=== PATIENT | female | born 1940 | race African-American/Black ===

== ENCOUNTER 2016-09-21 15:32 | Emergency (ER) | payer OTHER ==
[~2016-09-21] VITALS: Ht 160 cm; Wt 90.7 kg
[~2016-09-21 15:32] MED LIST: ACETAMINOPHEN1 EAC4 PO; ACETAMINOPHN-T1 EACH PO; ALEVE220 MG PO; AMLODIPINE-BEN1 EACH PO; AMOX TR-K CLV1 EAC4 PO; ANASTROZOLE1 MG PO; ARIMIDEX1 MG PO; ASPIR-LOW81 MG PO; ASPIRIN E.C.81 M1 PO; ATIVAN0.5 MG PO; AUGMENTIN875 MG PO; AZOR 10/20 M1 TABLET PO; Arimidex PO; Ativan PO; Augmentin PO; BENADRYL25 MG PO; CALCIUM + D 601 EACH PO; CALCIUM600 MG PO; CALTRATE 6001 TABLE1 PO; CEFTIN500 MG PO; CELEBREX200 MG PO; CHILD ASPIRIN81 M1 PO; CIPRO500 MG PO; Caltrate 600/200 PO; DOXYCYCLINE HY100 MG PO; EFFEXOR XR37.5 MG PO; EFFEXOR37.5 MG PO; FLONASE16 G1 BOTH NARES; Flonase BOTH NARES; GABAPENTIN300 MG PO; HUMALOG MI100 UNIT/5; HUMALOG MI100 UNIT/5 SC; HUMALOG MI100 UNIT/5 SQ; HUMALOG MI100 UNIT/6 SC; HUMALOG100 UNIT/1 SC; HUMALOG100 UNIT/2; HUMALOG100 UNIT/2 SC; HYDROCHLOROTHIA25 MG; HYDROCHLOROTHIA25 MG PO; LANTUS (UNITS)1 UNIT SC; LANTUS 10100 UNITS/ SC; LANTUS 3 M100 UNITS/ SC; LANTUS100 UNIT/1 SQ; LEVOCETIRIZINE D5 MG PO; LISINOPRIL20 MG PO; LORAZEPAM0.5 MG PO; LOTREL 10/21 CAPSULE PO; Lantus 3 ml Solostar SC; MECLIZINE HCL25 M3 PO; MECLIZINE HCL25 MG PO; MELOXICAM15 MG PO; METFORMIN HCL1000 MG PO; METFORMIN HCL500 MG PO; MYCOSTATIN 100,60 ML PO; NITROSTAT0.4 MG SL; NOVOLOG MI100 UNIT/M SC; NOVOLOG100 UNIT/2 SQ; OMEPRAZOLE20 MG PO; ONDANSETRON HCL4 MG PO; PANTOPRAZOLE SO40 MG PO; PERMETHRIN60 GM TP; PHENERGAN12.5 M1 PO; PHENERGAN12.5 MG PR; POTASSIUM GLUCO2 MEQ PO; POTASSIUM GLUCONATE PO; PRAVASTATIN SOD40 MG PO; PREDNISONE20 MG PO; PRILOSEC20 MG PO; PRILOSEC40 MG PO; PROMETHAZINE HC25 M1 PO; PROTONIX40 MG PO; Phenergan PO; TOUJEO SOL300 UNIT/1 SC; TRAMADOL HCL50 MG PO; Tylenol Extra Streng PO; Tylenol Regular Stre PO; ULTRAM50 MG PO; VENLAFAXINE HC150 MG PO; VENLAFAXINE HCL75 M3 PO; VENLAFAXINE HCL75 MG PO; VITAMIN E400 UNIT PO; ZOFRAN ODT4 MG PO; ZOFRAN4 MG PO; ZOLOFT50 MG PO; [UNRECOGNIZED DRUG - OTHER] TP
[2016-09-21 16:24] LABS: MCH 28.3 PG (29.0-34.0); MCHC 34.1 G/DL (30.0-36.0); MCV 83.1 FL (83-99); MEAN PLAT.VOLUME 10.1 uM^3 (9.5-12.4); PLATELET COUNT 140 K/uL (156-360); RBC DIS.WIDTH-SD 45.6 % (39-53); RED BLOOD COUNT 4.45 M/uL (3.80-5.20); WHITE BLOOD COUNT 4.9 K/uL (4.1-10.2)
[2016-09-21 16:31] LABS: CHLORIDE 102 mEq/L (99-109); POTASSIUM 3.7 mEq/L (3.7-5.4); SODIUM 138 mEq/L (136-147)
[2016-09-21 16:33] LABS: GLUCOSE 230 mg/dL (70-99)
[2016-09-21 16:35] LABS: ANION GAP 10 MEQ/L (2-14)
[2016-09-21 16:37] LABS: GFR ESTIMATE (CALCULATED) > 59 mL/min/
[2016-09-21 16:38] LABS: UREA NITROGEN (BUN) 11 mg/dL (9-23)
[2016-09-21 16:44] LABS: TROP-I INTERPRETATION NEGATIVE; TROPONIN-I < 0.01 ng/mL (0.0-0.30)
[2016-09-21] MEDS ORDERED: TOUJEO SOL300 UNIT/1 SC ×2 (18:22→18:23)
[2016-09-21] MEDS ORDERED: PREDNISONE20 MG PO (19:12)
[2016-09-21 19:58] LABS: POINT-OF-CARE METER ID UU13113800
[2016-09-21 20:07] VITALS: BP 150/72
== END 2016-09-21 20:10 | disposition home or self-care (01) ==
LOC: EME 15:32 → RME 15:32
PROVIDERS: Nurse Practitioner Family
DX: R06.02 Shortness of breath (principal); R06.2 Wheezing; E11.9 Type 2 diabetes mellitus without complications; I10 Essential (primary) hypertension; Z87.442 Personal history of urinary calculi; K21.9 Gastro-esophageal reflux disease without esophagitis; Z85.3 Personal history of malignant neoplasm of breast; Z79.82 Long term (current) use of aspirin; Z79.4 Long term (current) use of insulin
CPT/HCPCS: 71020; 80048; 82948; 84484; 85027; 93005; 94640; 99281; 99285; J7512

== ENCOUNTER 2016-10-25 05:26 | Observation (INO) | payer OTHER ==
[~2016-10-25] VITALS: Ht 161.3 cm; Wt 92.9 kg
[2016-10-25 06:06] LABS: HEMATOCRIT 35.5 % (36.0-46.0); MCH 27.9 PG (29.0-34.0); MCHC 33.8 G/DL (30.0-36.0); MCV 82.6 FL (83-99); MEAN PLAT.VOLUME 10.2 uM^3 (9.5-12.4); PLATELET COUNT 170 K/uL (156-360); RBC DIS.WIDTH-CV 13.8 % (11.8-14.6); RBC DIS.WIDTH-SD 40.6 % (39-53); WHITE BLOOD COUNT 5.6 K/uL (4.1-10.2)
[2016-10-25 06:19] LABS: CHLORIDE 100 mEq/L (99-109); POTASSIUM 3.1 mEq/L (3.7-5.4); SODIUM 139 mEq/L (136-147)
[2016-10-25 06:21] LABS: GLUCOSE 179 mg/dL (70-99)
[2016-10-25 06:22] LABS: ANION GAP 11 MEQ/L (2-14)
[2016-10-25 06:23] LABS: TOTAL BILIRUBIN 0.4 mg/dL (0.0-1.0)
[2016-10-25 06:24] LABS: ALKALINE PHOSPHATASE 122 IU/L (3-129)
[2016-10-25 06:25] LABS: GFR ESTIMATE (CALCULATED) > 59 mL/min/
[2016-10-25 06:26] LABS: UREA NITROGEN (BUN) 10 mg/dL (9-23)
[2016-10-25 06:28] LABS: LIPASE 7 U/L (1.0-51.0)
[2016-10-25 06:30] LABS: TROP-I INTERPRETATION NEGATIVE; TROPONIN-I < 0.01 ng/mL (0.0-0.30)
[2016-10-25] MEDS ORDERED: POTASSIUM GLUCO2 MEQ PO (08:43)
[2016-10-25] MEDS ORDERED: NOVOLOG PE100 UNITS/ SC (08:45)
[2016-10-25] MEDS ORDERED: KENALOG,ARISTOC15 GM TP (08:45)
[2016-10-25] MEDS ORDERED: VENTOLIN HFA18 GM IH (08:45)
[2016-10-25 12:55] VITALS: BP 163/74
[2016-10-25 12:56] LABS: POINT-OF-CARE METER ID UU14162513
[2016-10-25 14:18] LABS: TROP-I INTERPRETATION NEGATIVE; TROPONIN-I < 0.01 ng/mL (0.0-0.30)
[2016-10-25 16:13] VITALS: BP 173/74
[2016-10-25 17:24] LABS: POINT-OF-CARE METER ID UU13113831
[2016-10-25 20:00] VITALS: BP 137/63
[2016-10-25 20:45] LABS: TROP-I INTERPRETATION NEGATIVE; TROPONIN-I < 0.01 ng/mL (0.0-0.30)
[2016-10-25 21:14] LABS: POINT-OF-CARE METER ID UU13113700
[2016-10-25 23:44] VITALS: BP 142/73
[2016-10-26 05:15] VITALS: BP 146/70
[2016-10-26 07:39] VITALS: BP 152/71
[2016-10-26] MEDS ORDERED: LISINOPRIL20 MG PO (09:01)
[2016-10-26] MEDS ORDERED: AMLODIPINE BESY10 MG PO (09:34)
[2016-10-26 10:20] LABS: HEMATOCRIT 35.3 % (36.0-46.0); MCH 28.1 PG (29.0-34.0); MCHC 33.4 G/DL (30.0-36.0); MEAN PLAT.VOLUME 10.7 uM^3 (9.5-12.4); PLATELET COUNT 158 K/uL (156-360); RBC DIS.WIDTH-CV 14.5 % (11.8-14.6); RBC DIS.WIDTH-SD 44.6 % (39-53); WHITE BLOOD COUNT 5.3 K/uL (4.1-10.2)
[2016-10-26 10:41] LABS: ANION GAP 10 MEQ/L (2-14); CHLORIDE 101 MEQ/L (99-109); GFR ESTIMATE (CALCULATED) > 59 mL/min/; GLUCOSE 216 mg/dL (70-99); MAGNESIUM 1.6 mg/dl (1.3-2.7); POTASSIUM 3.7 MEQ/L (3.7-5.4); SAMPLE HEMOLYSIS CHECK 0; SAMPLE ICTERIC CHECK 0; SAMPLE LIPEMIA CHECK 0; SODIUM 139 MEQ/L (136-147); UREA NITROGEN (BUN) 13 mg/dL (9-23)
== END 2016-10-26 11:19 | disposition home or self-care (01) ==
LOC: EME → EDBD 05:26 → EME 05:26 → EDOF 09:55 → 5WEST 09:55
PROVIDERS: Emergency Medicine; Hospitalist; Internal Medicine; Physician Assistant
DX: R07.9 Chest pain, unspecified (principal); M79.601 Pain in right arm; I10 Essential (primary) hypertension; E78.5 Hyperlipidemia, unspecified; E66.9 Obesity, unspecified; Z68.35 Body mass index [BMI] 35.0-35.9, adult; E11.9 Type 2 diabetes mellitus without complications; E87.6 Hypokalemia; Z79.4 Long term (current) use of insulin; R06.02 Shortness of breath; R42 Dizziness and giddiness; Z88.5 Allergy status to narcotic agent
CPT/HCPCS: 71010; 73030; 73080; 80048; 80053; 82948; 83690; 83735; 83880; 84484; 85027; 85730; 93005; 99281; 99285; G0378; J1200; J1815

== ENCOUNTER 2017-01-07 08:09 | Emergency (ER) | payer OTHER ==
[~2017-01-07] VITALS: Ht 160 cm; Wt 95.6 kg
[~2017-01-07 08:09] MED LIST changes: +AMLODIPINE BESY10 MG PO; +KENALOG,ARISTOC15 GM TP; +NOVOLOG PE100 UNITS/ SC; +VENTOLIN HFA18 GM IH
[2017-01-07 08:53] LABS: EOSINOPHIL (%) 7.2 % (0-5); EOSINOPHIL COUNT 0.4 K/uL (0-0.3); HEMATOCRIT 35.9 % (36.0-46.0); IMMATURE GRANULOCYTE (%) 0.4 % (0.0-0.7); INSTRUMENT ABS NEUTROPHIL CT 2.6 K/uL; LYMPHOCYTE COUNT 1.7 K/uL (1.0-2.8); MCH 26.3 PG (29.0-34.0); MCHC 32.9 G/DL (30.0-36.0); MCV 80.1 FL (83-99); MEAN PLAT.VOLUME 10.6 uM^3 (9.5-12.4); MONOCYTE (%) 9.1 % (3-12); MONOCYTE COUNT 0.5 K/uL (0-0.8); NEUTROPHIL (%) 49.6 % (45-76); NEUTROPHIL COUNT 2.6 K/uL (1.8-6.4); PLATELET COUNT 157 K/uL (156-360); RBC DIS.WIDTH-CV 14.5 % (11.8-14.6); RBC DIS.WIDTH-SD 42.4 % (39-53); RED BLOOD COUNT 4.48 M/uL (3.80-5.20); WHITE BLOOD COUNT 5.1 K/uL (4.1-10.2)
[2017-01-07 09:25] LABS: ANION GAP 5 MEQ/L (2-14); CHLORIDE 98 MEQ/L (99-109); POTASSIUM 3.5 MEQ/L (3.7-5.4); SAMPLE HEMOLYSIS CHECK 0; SAMPLE ICTERIC CHECK 0; SAMPLE LIPEMIA CHECK 0; SODIUM 133 MEQ/L (136-147); TOTAL BILIRUBIN 0.4 MG/DL (0.0-1.0)
[2017-01-07 09:27] LABS: TROP-I INTERPRETATION NEGATIVE; TROPONIN-I < 0.01 ng/mL (0.0-0.30)
[2017-01-07 09:31] LABS: ALKALINE PHOSPHATASE 136 IU/L (3-129); GFR ESTIMATE (CALCULATED) > 59 mL/min/; GLUCOSE 136 mg/dL (70-99); LIPASE 9 U/L (1.0-51.0); UREA NITROGEN (BUN) 12 mg/dL (9-23)
[2017-01-07 11:31] VITALS: BP 152/90
== END 2017-01-07 11:32 | disposition home or self-care (01) ==
LOC: EME 08:09
PROVIDERS: Emergency Medicine
DX: R10.13 Epigastric pain (principal); K21.0 Gastro-esophageal reflux disease with esophagitis; K44.9 Diaphragmatic hernia without obstruction or gangrene; R51 Headache; R05 Cough; I10 Essential (primary) hypertension; E11.9 Type 2 diabetes mellitus without complications; J44.9 Chronic obstructive pulmonary disease, unspecified; J45.909 Unspecified asthma, uncomplicated; Z87.442 Personal history of urinary calculi; Z85.3 Personal history of malignant neoplasm of breast; Z90.49 Acquired absence of other specified parts of digestive tract; Z90.710 Acquired absence of both cervix and uterus; Z79.4 Long term (current) use of insulin; Z79.82 Long term (current) use of aspirin
CPT/HCPCS: 71010; 80053; 83690; 84484; 85025; 99281; 99284

== ENCOUNTER 2017-02-17 19:39 | Emergency (ER) | payer OTHER ==
[~2017-02-17] VITALS: Ht 160 cm; Wt 97.1 kg
[2017-02-17 21:25] LABS: MCH 26.1 PG (29.0-34.0); MCHC 32.4 G/DL (30.0-36.0); MCV 80.6 FL (83-99); MEAN PLAT.VOLUME 10.8 uM^3 (9.5-12.4); PLATELET COUNT 150 K/uL (156-360); RBC DIS.WIDTH-CV 15.4 % (11.8-14.6); RBC DIS.WIDTH-SD 44.8 % (39-53); RED BLOOD COUNT 4.22 M/uL (3.80-5.20); WHITE BLOOD COUNT 5.7 K/uL (4.1-10.2)
[2017-02-17 21:37] LABS: CHLORIDE 105 mEq/L (99-109); POTASSIUM 4.2 mEq/L (3.7-5.4); SODIUM 137 mEq/L (136-147)
[2017-02-17 21:39] LABS: GLUCOSE 240 mg/dL (70-99)
[2017-02-17 21:40] LABS: ANION GAP 3 MEQ/L (2-14)
[2017-02-17 21:41] LABS: TOTAL BILIRUBIN 0.4 mg/dL (0.0-1.0)
[2017-02-17 21:42] LABS: ALKALINE PHOSPHATASE 139 IU/L (3-129)
[2017-02-17 21:43] LABS: GFR ESTIMATE (CALCULATED) > 59 mL/min/
[2017-02-17 21:44] LABS: UREA NITROGEN (BUN) 15 mg/dL (9-23)
[2017-02-17 21:48] LABS: TROP-I INTERPRETATION NEGATIVE; TROPONIN-I < 0.01 ng/mL (0.0-0.30)
[2017-02-17 22:22] LABS: ADD MIUA? YES; BILIRUBIN NEGATIVE; BLOOD SMALL; COLOR YELLOW ((YELLOW)); GLUCOSE (STRIP) 50; KETONES NEGATIVE; LEUKOCYTES TRACE; NITRITE NEGATIVE; PROTEIN (STRIP) 30; SPECIFIC GRAVITY 1.013 (1.000-1.030); UROBILINOGEN 0.2 MG/DL (0.2-1.0)
[2017-02-17 22:38] LABS: BACTERIA 3+ /HPF; EPITHELIAL CELLS 1+ /HPF; MUCUS TRACE /LPF; RED BLOOD CELLS 0-5 /HPF (0-5); UCUL ADDED? NO; WHITE BLOOD CELLS 0-5 /HPF (0-5)
[2017-02-17 23:05] VITALS: BP 132/66
== END 2017-02-17 23:06 | disposition home or self-care (01) ==
LOC: EME 19:39 → EXP 19:39
PROVIDERS: Physician Assistant
DX: R42 Dizziness and giddiness (principal); S09.90XA Unspecified injury of head, initial encounter; S16.1XXA Strain of muscle, fascia and tendon at neck level, initial encounter; W18.30XA Fall on same level, unspecified, initial encounter; Y93.G3 Activity, cooking and baking; Y92.000 Kitchen of unspecified non-institutional (private) residence as the place of occurrence of the external cause; E11.9 Type 2 diabetes mellitus without complications; I10 Essential (primary) hypertension; K21.9 Gastro-esophageal reflux disease without esophagitis; Z87.442 Personal history of urinary calculi; J44.9 Chronic obstructive pulmonary disease, unspecified; Z88.6 Allergy status to analgesic agent; Z79.4 Long term (current) use of insulin
CPT/HCPCS: 70450; 72125; 80053; 81003; 84484; 85027; 93005; 99281; 99284

== ENCOUNTER 2017-02-27 10:12 | Emergency (ER) | payer OTHER ==
[~2017-02-27] VITALS: Ht 160 cm; Wt 91.8 kg
[2017-02-27 12:51] LABS: EOSINOPHIL (%) 1.9 % (0-5); EOSINOPHIL COUNT 0.1 K/uL (0-0.3); IMMATURE GRANULOCYTE (%) 0.4 % (0.0-0.7); INSTRUMENT ABS NEUTROPHIL CT 4.4 K/uL; LYMPHOCYTE COUNT 1.9 K/uL (1.0-2.8); MCHC 32.6 G/DL (30.0-36.0); MCV 79.7 FL (83-99); MEAN PLAT.VOLUME 11.8 uM^3 (9.5-12.4); MONOCYTE (%) 10.7 % (3-12); MONOCYTE COUNT 0.8 K/uL (0-0.8); NEUTROPHIL (%) 60.8 % (45-76); NEUTROPHIL COUNT 4.4 K/uL (1.8-6.4); PLATELET COUNT 160 K/uL (156-360); RBC DIS.WIDTH-CV 15.8 % (11.8-14.6); RBC DIS.WIDTH-SD 45.4 % (39-53); RED BLOOD COUNT 4.77 M/uL (3.80-5.20); WHITE BLOOD COUNT 7.2 K/uL (4.1-10.2)
[2017-02-27 13:01] LABS: CHLORIDE 103 mEq/L (99-109); POTASSIUM 3.8 mEq/L (3.7-5.4); SODIUM 140 mEq/L (136-147)
[2017-02-27 13:02] LABS: GLUCOSE 151 mg/dL (70-99)
[2017-02-27 13:04] LABS: ANION GAP 11 MEQ/L (2-14)
[2017-02-27 13:06] LABS: GFR ESTIMATE (CALCULATED) > 59 mL/min/
[2017-02-27 13:07] LABS: UREA NITROGEN (BUN) 9 mg/dL (9-23)
[2017-02-27] MEDS ORDERED: MOTRIN800 MG PO (16:49)
[2017-02-27 17:27] VITALS: BP 163/69
== END 2017-02-27 17:40 | disposition home or self-care (01) ==
LOC: EME 10:12
PROVIDERS: Emergency Medicine
DX: S09.90XA Unspecified injury of head, initial encounter (principal); S60.222A Contusion of left hand, initial encounter; W01.0XXA Fall on same level from slipping, tripping and stumbling without subsequent striking against object, initial encounter; Y92.002 Bathroom of unspecified non-institutional (private) residence as the place of occurrence of the external cause; Z85.3 Personal history of malignant neoplasm of breast; E11.9 Type 2 diabetes mellitus without complications; Z79.4 Long term (current) use of insulin; Z79.82 Long term (current) use of aspirin; J44.9 Chronic obstructive pulmonary disease, unspecified; I10 Essential (primary) hypertension; Z87.442 Personal history of urinary calculi; K21.9 Gastro-esophageal reflux disease without esophagitis; Z88.8 Allergy status to other drugs, medicaments and biological substances; Z88.5 Allergy status to narcotic agent
CPT/HCPCS: 70450; 73110; 73130; 80048; 85025; 99281; 99284; G8978 GP CK; G8979 CJ; G8987 CK; G8988 CI

== ENCOUNTER 2017-04-01 12:08 | Observation (INO) | payer OTHER ==
[~2017-04-01] VITALS: Ht 160 cm; Wt 92.2 kg
[~2017-04-01 12:08] MED LIST changes: +MOTRIN800 MG PO
[2017-04-01 12:46] LABS: EOSINOPHIL (%) 3.7 % (0-5); EOSINOPHIL COUNT 0.2 K/uL (0-0.3); HEMATOCRIT 33.3 % (36.0-46.0); IMMATURE GRANULOCYTE (%) 0.7 % (0.0-0.7); INSTRUMENT ABS NEUTROPHIL CT 1.7 K/uL; LYMPHOCYTE COUNT 1.9 K/uL (1.0-2.8); MCH 26.1 PG (29.0-34.0); MCHC 32.7 G/DL (30.0-36.0); MCV 79.9 FL (83-99); MEAN PLAT.VOLUME 11.3 uM^3 (9.5-12.4); MONOCYTE COUNT 0.5 K/uL (0-0.8); NEUTROPHIL (%) 39.7 % (45-76); NEUTROPHIL COUNT 1.7 K/uL (1.8-6.4); PLATELET COUNT 142 K/uL (156-360); RBC DIS.WIDTH-CV 15.2 % (11.8-14.6); RBC DIS.WIDTH-SD 44.1 % (39-53); RED BLOOD COUNT 4.17 M/uL (3.80-5.20); WHITE BLOOD COUNT 4.4 K/uL (4.1-10.2)
[2017-04-01 13:04] LABS: CHLORIDE 103 mEq/L (99-109)
[2017-04-01 13:05] LABS: POTASSIUM 3.6 mEq/L (3.7-5.4); SODIUM 138 mEq/L (136-147)
[2017-04-01 13:06] LABS: GLUCOSE 262 mg/dL (70-99)
[2017-04-01 13:08] LABS: ANION GAP 9 MEQ/L (2-14)
[2017-04-01 13:10] LABS: GFR ESTIMATE (CALCULATED) > 59 mL/min/
[2017-04-01 13:11] LABS: UREA NITROGEN (BUN) 7 mg/dL (9-23)
[2017-04-01 13:14] LABS: TROP-I INTERPRETATION NEGATIVE; TROPONIN-I < 0.01 ng/mL (0.0-0.30)
[2017-04-01] MEDS ORDERED: AMLODIPINE-BEN1 EACH PO (14:02)
[2017-04-01] MEDS ORDERED: ZOLOFT100 MG PO (14:04)
[2017-04-01] MEDS ORDERED: POTASSIUM-9999 MG PO (14:05)
[2017-04-01] MEDS ORDERED: INDERAL40 MG PO (14:06)
[2017-04-01 15:30] VITALS: BP 192/86
[2017-04-01 17:18] LABS: POINT-OF-CARE METER ID UU14162513
[2017-04-01 18:39] LABS: TROP-I INTERPRETATION NEGATIVE; TROPONIN-I < 0.01 ng/mL (0.0-0.30)
[2017-04-01 19:40] VITALS: BP 184/73
[2017-04-01 20:39] LABS: POINT-OF-CARE METER ID UU14162513
[2017-04-01 23:59] VITALS: BP 162/72
[2017-04-02 01:10] LABS: TROP-I INTERPRETATION NEGATIVE; TROPONIN-I < 0.01 ng/mL (0.0-0.30)
[2017-04-02 04:44] VITALS: BP 165/76
[2017-04-02 05:36] LABS: EOSINOPHIL (%) 3.8 % (0-5); EOSINOPHIL COUNT 0.2 K/uL (0-0.3); IMMATURE GRANULOCYTE (%) 0.4 % (0.0-0.7); INSTRUMENT ABS NEUTROPHIL CT 2.3 K/uL; LYMPHOCYTE COUNT 1.8 K/uL (1.0-2.8); MCH 25.4 PG (29.0-34.0); MCHC 31.8 G/DL (30.0-36.0); MEAN PLAT.VOLUME 11.5 uM^3 (9.5-12.4); MONOCYTE (%) 12.1 % (3-12); MONOCYTE COUNT 0.6 K/uL (0-0.8); NEUTROPHIL (%) 46.7 % (45-76); NEUTROPHIL COUNT 2.3 K/uL (1.8-6.4); PLATELET COUNT 156 K/uL (156-360); RBC DIS.WIDTH-CV 15.5 % (11.8-14.6); RBC DIS.WIDTH-SD 45.2 % (39-53); RED BLOOD COUNT 4.25 M/uL (3.80-5.20)
[2017-04-02 06:04] LABS: ANION GAP 8 MEQ/L (2-14); CHLORIDE 106 MEQ/L (99-109); GFR ESTIMATE (CALCULATED) > 59 mL/min/; POTASSIUM 3.6 MEQ/L (3.7-5.4); SAMPLE HEMOLYSIS CHECK 0; SAMPLE ICTERIC CHECK 0; SAMPLE LIPEMIA CHECK 0; SODIUM 143 MEQ/L (136-147); UREA NITROGEN (BUN) 9 mg/dL (9-23)
[2017-04-02 06:05] LABS: GLUCOSE 120 mg/dL (70-99)
[2017-04-02 08:00] VITALS: BP 193/79
[2017-04-02 11:05] VITALS: BP 165/73
== END 2017-04-02 11:47 | disposition home or self-care (01) ==
LOC: EME 12:08 → EDOF 13:58 → 5WEST 13:58 → EDOF 14:16 → 5WEST 15:13
PROVIDERS: Emergency Medicine; Hospitalist; Student in an Organized Health Care Education/Training Program
DX: R07.9 Chest pain, unspecified (principal); R06.02 Shortness of breath; E11.9 Type 2 diabetes mellitus without complications; Z79.4 Long term (current) use of insulin; I10 Essential (primary) hypertension; E78.5 Hyperlipidemia, unspecified; K21.9 Gastro-esophageal reflux disease without esophagitis; Z88.5 Allergy status to narcotic agent; Z88.8 Allergy status to other drugs, medicaments and biological substances; E66.9 Obesity, unspecified; Z68.36 Body mass index [BMI] 36.0-36.9, adult; Z79.82 Long term (current) use of aspirin; Z87.891 Personal history of nicotine dependence
CPT/HCPCS: 71010; 80048; 82948; 84484; 85025; 93005; 99202; 99281; 99284; C9113; G0378; J1644

== ENCOUNTER 2017-05-31 11:37 | Emergency (ER) | payer OTHER ==
[~2017-05-31] VITALS: Ht 160 cm; Wt 96.3 kg
[~2017-05-31 11:37] MED LIST changes: +INDERAL40 MG PO; +POTASSIUM-9999 MG PO; +ZOLOFT100 MG PO
[2017-05-31 13:08] LABS: MCH 25.9 PG (29.0-34.0); MCHC 32.7 G/DL (30.0-36.0); MCV 79.1 FL (83-99); MEAN PLAT.VOLUME 10.7 uM^3 (9.5-12.4); PLATELET COUNT 139 K/uL (156-360); RBC DIS.WIDTH-CV 15.9 % (11.8-14.6); RBC DIS.WIDTH-SD 45.1 % (39-53); RED BLOOD COUNT 4.17 M/uL (3.80-5.20); WHITE BLOOD COUNT 5.7 K/uL (4.1-10.2)
[2017-05-31 13:17] LABS: CHLORIDE 105 mEq/L (99-109); POTASSIUM 4.1 mEq/L (3.7-5.4); SODIUM 140 mEq/L (136-147)
[2017-05-31 13:19] LABS: GLUCOSE 163 mg/dL (70-99)
[2017-05-31 13:20] LABS: ANION GAP 10 MEQ/L (2-14)
[2017-05-31 13:23] LABS: GFR ESTIMATE (CALCULATED) > 59 mL/min/
[2017-05-31 13:24] LABS: UREA NITROGEN (BUN) 13 mg/dL (9-23)
[2017-05-31 13:28] LABS: TROP-I INTERPRETATION NEGATIVE; TROPONIN-I < 0.01 ng/mL (0.0-0.30)
[2017-05-31 15:14] LABS: ADD MIUA? YES; BILIRUBIN NEGATIVE; BLOOD NEGATIVE; COLOR YELLOW ((YELLOW)); GLUCOSE (STRIP) NEGATIVE; KETONES NEGATIVE; LEUKOCYTES NEGATIVE; NITRITE NEGATIVE; PROTEIN (STRIP) 100; SPECIFIC GRAVITY 1.011 (1.000-1.030)
[2017-05-31 15:19] LABS: BACTERIA NONE SEEN /HPF; EPITHELIAL CELLS RARE /HPF; MUCUS NONE SEEN /LPF; RED BLOOD CELLS 0-5 /HPF (0-5); UCUL ADDED? NO; WHITE BLOOD CELLS 0-5 /HPF (0-5)
[2017-05-31] MEDS ORDERED: ULTRAM50 MG PO (15:25)
[2017-05-31 16:10] VITALS: BP 157/70
== END 2017-05-31 16:10 | disposition home or self-care (01) ==
LOC: EME 11:37
PROVIDERS: Emergency Medicine
DX: R53.1 Weakness (principal); R10.9 Unspecified abdominal pain; Z91.81 History of falling; E11.9 Type 2 diabetes mellitus without complications; Z79.4 Long term (current) use of insulin; I10 Essential (primary) hypertension; Z85.3 Personal history of malignant neoplasm of breast; Z87.442 Personal history of urinary calculi; Z88.5 Allergy status to narcotic agent
CPT/HCPCS: 70450; 71010; 80048; 81003; 84484; 85027; 93005; 99281; 99282

== ENCOUNTER 2017-06-10 14:20 | Emergency (ER) | payer OTHER ==
[~2017-06-10] VITALS: Ht 160 cm; Wt 92.2 kg
[2017-06-10 15:29] LABS: HEMATOCRIT 33.9 % (36.0-46.0); MCH 25.6 PG (29.0-34.0); MCHC 32.2 G/DL (30.0-36.0); MCV 79.8 FL (83-99); MEAN PLAT.VOLUME 10.5 uM^3 (9.5-12.4); PLATELET COUNT 143 K/uL (156-360); RBC DIS.WIDTH-CV 15.9 % (11.8-14.6); RED BLOOD COUNT 4.25 M/uL (3.80-5.20); WHITE BLOOD COUNT 4.9 K/uL (4.1-10.2)
[2017-06-10 15:49] LABS: TROP-I INTERPRETATION NEGATIVE; TROPONIN-I < 0.01 ng/mL (0.0-0.30)
[2017-06-10 16:00] LABS: CHLORIDE 103 mEq/L (99-109); POTASSIUM 4.2 mEq/L (3.7-5.4); SODIUM 138 mEq/L (136-147)
[2017-06-10 16:01] LABS: GLUCOSE 278 mg/dL (70-99)
[2017-06-10 16:03] LABS: ANION GAP 7 MEQ/L (2-14)
[2017-06-10 16:05] LABS: GFR ESTIMATE (CALCULATED) > 59 mL/min/
[2017-06-10 16:06] LABS: UREA NITROGEN (BUN) 19 mg/dL (9-23)
[2017-06-10 16:52] LABS: ADD MIUA? YES; BILIRUBIN NEGATIVE; BLOOD NEGATIVE; COLOR YELLOW ((YELLOW)); GLUCOSE (STRIP) 50; KETONES NEGATIVE; LEUKOCYTES LARGE; NITRITE NEGATIVE; PROTEIN (STRIP) 100; SPECIFIC GRAVITY 1.013 (1.000-1.030); UROBILINOGEN 0.2 MG/DL (0.2-1.0)
[2017-06-10 17:07] LABS: BACTERIA RARE /HPF; EPITHELIAL CELLS RARE /HPF; MUCUS TRACE /LPF; UCUL ADDED? YES; WHITE BLOOD CELLS TNTC /HPF (0-5); WHITE BLOOD CELLS CLUMP RARE /HPF (0-5)
[2017-06-10] MEDS ORDERED: KEFLEX500 MG PO (17:20)
[2017-06-10] MEDS ORDERED: PYRIDIUM200 MG PO (17:20)
[2017-06-10 18:08] VITALS: BP 139/77
== END 2017-06-10 18:12 | disposition home or self-care (01) ==
LOC: EME 14:20
PROVIDERS: Nurse Practitioner Family; Physician Assistant
DX: N39.0 Urinary tract infection, site not specified (principal); J44.9 Chronic obstructive pulmonary disease, unspecified; I10 Essential (primary) hypertension; K21.9 Gastro-esophageal reflux disease without esophagitis; E11.9 Type 2 diabetes mellitus without complications; Z79.4 Long term (current) use of insulin; Z87.442 Personal history of urinary calculi; Z79.82 Long term (current) use of aspirin; Z85.3 Personal history of malignant neoplasm of breast
CPT/HCPCS: 71020; 80048; 81003; 84484; 85027; 87077; 87086 GA; 87186; 99281; 99284

== ENCOUNTER 2017-06-17 15:33 | Emergency (ER) | payer OTHER ==
[~2017-06-17] VITALS: Ht 160 cm; Wt 96.2 kg
[~2017-06-17 15:33] MED LIST changes: +KEFLEX500 MG PO; +PYRIDIUM200 MG PO
[2017-06-17 18:50] VITALS: BP 157/66
[2017-06-18] MEDS ORDERED: ALEVE220 M2 PO (15:50)
[2017-06-18] MEDS ORDERED: OMEPRAZOLE40 M1 PO (15:50)
== END 2017-06-17 18:51 | disposition home or self-care (01) ==
LOC: EME 15:33
DX: S09.90XA Unspecified injury of head, initial encounter (principal); S60.212A Contusion of left wrist, initial encounter; W01.0XXA Fall on same level from slipping, tripping and stumbling without subsequent striking against object, initial encounter; Y93.E9 Activity, other interior property and clothing maintenance; Y92.009 Unspecified place in unspecified non-institutional (private) residence as the place of occurrence of the external cause; I10 Essential (primary) hypertension; J44.9 Chronic obstructive pulmonary disease, unspecified; K21.9 Gastro-esophageal reflux disease without esophagitis; E11.9 Type 2 diabetes mellitus without complications; F32.9 Major depressive disorder, single episode, unspecified; F41.9 Anxiety disorder, unspecified; Z79.4 Long term (current) use of insulin; Z79.82 Long term (current) use of aspirin; Z85.3 Personal history of malignant neoplasm of breast
CPT/HCPCS: 70450; 71020; 72100; 72125; 72170; 73110; 99281; 99284

== ENCOUNTER 2017-06-18 07:54 | Inpatient (IN) | payer OTHER ==
[~2017-06-18] VITALS: Ht 160 cm; Wt 97.5 kg
[2017-06-18 08:20] LABS: HEMATOCRIT 33.2 % (36.0-46.0); MCH 25.7 PG (29.0-34.0); MCHC 32.2 G/DL (30.0-36.0); MCV 79.6 FL (83-99); MEAN PLAT.VOLUME 10.9 uM^3 (9.5-12.4); PLATELET COUNT 134 K/uL (156-360); RBC DIS.WIDTH-CV 15.5 % (11.8-14.6); RBC DIS.WIDTH-SD 45.1 % (39-53); RED BLOOD COUNT 4.17 M/uL (3.80-5.20); WHITE BLOOD COUNT 7.6 K/uL (4.1-10.2)
[2017-06-18 08:30] LABS: CHLORIDE 104 mEq/L (99-109); POTASSIUM 3.7 mEq/L (3.7-5.4); SODIUM 140 mEq/L (136-147)
[2017-06-18 08:32] LABS: GLUCOSE 338 mg/dL (70-99)
[2017-06-18 08:33] LABS: ANION GAP 7 MEQ/L (2-14)
[2017-06-18 08:36] LABS: GFR ESTIMATE (CALCULATED) > 59 mL/min/
[2017-06-18 08:37] LABS: UREA NITROGEN (BUN) 11 mg/dL (9-23)
[2017-06-18 08:42] LABS: TROP-I INTERPRETATION NEGATIVE; TROPONIN-I < 0.01 ng/mL (0.0-0.30)
[2017-06-18 11:19] LABS: ADD MIUA? YES; BILIRUBIN NEGATIVE; BLOOD NEGATIVE; COLOR YELLOW ((YELLOW)); GLUCOSE (STRIP) >=500; KETONES NEGATIVE; LEUKOCYTES NEGATIVE; NITRITE NEGATIVE; PROTEIN (STRIP) 100; SPECIFIC GRAVITY 1.012 (1.000-1.030)
[2017-06-18 11:21] LABS: BACTERIA RARE /HPF; EPITHELIAL CELLS RARE /HPF; MUCUS TRACE /LPF; RED BLOOD CELLS 0-5 /HPF (0-5); WHITE BLOOD CELLS 0-5 /HPF (0-5)
[2017-06-18] MEDS ORDERED: ALEVE220 M2 PO (15:50)
[2017-06-18] MEDS ORDERED: OMEPRAZOLE40 M1 PO (15:50)
[2017-06-18 18:19] VITALS: BP 140/86
[2017-06-18 20:07] VITALS: BP 165/75
[2017-06-18 21:29] LABS: POINT-OF-CARE METER ID UU14208753
[2017-06-18 23:47] VITALS: BP 175/81
[2017-06-19] VITALS (9 sets, daily range): BP systolic 102–192; BP diastolic 66–84
[2017-06-19 06:29] LABS: POINT-OF-CARE METER ID UU14117124
[2017-06-19 11:41] LABS: POINT-OF-CARE METER ID UU14208753
[2017-06-19 16:38] LABS: POINT-OF-CARE METER ID UU14117124
[2017-06-19 21:40] LABS: POINT-OF-CARE METER ID UU14208753
[2017-06-20 04:21] VITALS: BP 156/67
[2017-06-20 06:09] LABS: POINT-OF-CARE METER ID UU14117124
[2017-06-20 07:20] LABS: EOSINOPHIL (%) 4.3 % (0-5); EOSINOPHIL COUNT 0.3 K/uL (0-0.3); HEMATOCRIT 29.9 % (36.0-46.0); IMMATURE GRANULOCYTE (%) 0.3 % (0.0-0.7); INSTRUMENT ABS NEUTROPHIL CT 3.2 K/uL; LYMPHOCYTE COUNT 2.3 K/uL (1.0-2.8); MCH 25.6 PG (29.0-34.0); MCHC 31.8 G/DL (30.0-36.0); MCV 80.6 FL (83-99); MEAN PLAT.VOLUME 11.4 uM^3 (9.5-12.4); MONOCYTE (%) 9.6 % (3-12); MONOCYTE COUNT 0.6 K/uL (0-0.8); NEUTROPHIL (%) 49.4 % (45-76); NEUTROPHIL COUNT 3.2 K/uL (1.8-6.4); PLATELET COUNT 121 K/uL (156-360); RBC DIS.WIDTH-CV 16.1 % (11.8-14.6); RBC DIS.WIDTH-SD 47.6 % (39-53); RED BLOOD COUNT 3.71 M/uL (3.80-5.20); WHITE BLOOD COUNT 6.5 K/uL (4.1-10.2)
[2017-06-20 07:40] LABS: ANION GAP 8 MEQ/L (2-14); CHLORIDE 103 MEQ/L (99-109); POTASSIUM 3.9 MEQ/L (3.7-5.4); SAMPLE HEMOLYSIS CHECK 0; SAMPLE ICTERIC CHECK 0; SAMPLE LIPEMIA CHECK 0; SODIUM 136 MEQ/L (136-147); TOTAL BILIRUBIN 0.4 MG/DL (0.0-1.0)
[2017-06-20 07:45] LABS: ALKALINE PHOSPHATASE 141 IU/L (3-129); GFR ESTIMATE (CALCULATED) > 59 mL/min/; GLUCOSE 233 mg/dL (70-99); UREA NITROGEN (BUN) 15 mg/dL (9-23)
[2017-06-20 08:42] VITALS: BP 157/67
[2017-06-20 11:25] LABS: POINT-OF-CARE METER ID UU14208753
[2017-06-20 11:54] VITALS: BP 202/78
[2017-06-20 12:30] VITALS: BP 172/64
[2017-06-20 16:13] VITALS: BP 159/67
[2017-06-20 19:32] VITALS: BP 169/72
[2017-06-21] VITALS: BP 172/72
[2017-06-21 04:36] VITALS: BP 148/70
[2017-06-21 06:38] LABS: POINT-OF-CARE METER ID UU14117124
[2017-06-21 08:36] VITALS: BP 137/66
[2017-06-21 12:23] VITALS: BP 150/77
[2017-06-21 17:01] VITALS: BP 188/82
[2017-06-21 21:28] LABS: POINT-OF-CARE METER ID UU14208753
[2017-06-21 23:52] VITALS: BP 149/66
[2017-06-22 06:35] LABS: POINT-OF-CARE METER ID UU14208753
[2017-06-22 06:44] LABS: ALKALINE PHOSPHATASE 135 IU/L (3-129); ANION GAP 11 MEQ/L (2-14); CHLORIDE 105 MEQ/L (99-109); GFR ESTIMATE (CALCULATED) > 59 mL/min/; GLUCOSE 221 mg/dL (70-99); POTASSIUM 4.2 MEQ/L (3.7-5.4); SAMPLE HEMOLYSIS CHECK 1; SAMPLE ICTERIC CHECK 0; SAMPLE LIPEMIA CHECK 0; SODIUM 138 MEQ/L (136-147); TOTAL BILIRUBIN 0.7 MG/DL (0.0-1.0); UREA NITROGEN (BUN) 13 mg/dL (9-23)
[2017-06-22] MEDS ORDERED: ENDOCET 5-3251 EACH PO (06:45)
[2017-06-22] MEDS ORDERED: LISINOPRIL40 MG PO (06:45)
[2017-06-22] MEDS ORDERED: DOCUSATE SODIU100 MG PO (06:45)
[2017-06-22] MEDS ORDERED: NOVOLOG PE100 UNITS/ SC (06:45)
[2017-06-22] MEDS ORDERED: ASPIRIN81 M2 PO (06:45)
[2017-06-22] MEDS ORDERED: AMLODIPINE BESY10 MG PO (06:45)
[2017-06-22] MEDS ORDERED: LEVEMIR100 UNIT/2 SC (06:45)
[2017-06-22 06:52] LABS: EOSINOPHIL (%) 1.1 % (0-5); EOSINOPHIL COUNT 0.1 K/uL (0-0.3); HEMATOCRIT 29.7 % (36.0-46.0); IMMATURE GRANULOCYTE (%) 0.2 % (0.0-0.7); INSTRUMENT ABS NEUTROPHIL CT 5.1 K/uL; LYMPHOCYTE COUNT 2.1 K/uL (1.0-2.8); MCH 26.7 PG (29.0-34.0); MCV 80.9 FL (83-99); MEAN PLAT.VOLUME 11.1 uM^3 (9.5-12.4); MONOCYTE (%) 10.2 % (3-12); MONOCYTE COUNT 0.8 K/uL (0-0.8); NEUTROPHIL (%) 62.9 % (45-76); NEUTROPHIL COUNT 5.1 K/uL (1.8-6.4); PLATELET COUNT 143 K/uL (156-360); RBC DIS.WIDTH-CV 16.6 % (11.8-14.6); RBC DIS.WIDTH-SD 48.4 % (39-53); RED BLOOD COUNT 3.67 M/uL (3.80-5.20); WHITE BLOOD COUNT 8.2 K/uL (4.1-10.2)
[2017-06-22 08:50] VITALS: BP 175/75
[2017-06-22 11:39] LABS: POINT-OF-CARE METER ID UU14117124
[2017-06-22 15:40] VITALS: BP 173/74
== END 2017-06-22 16:04 | DRG 638 ==
LOC: EME 07:54 → EDOF 15:54 → 3EAST 15:54 → EDOF 15:54 → ENRESERV 16:07 → 3EAST 17:49
PROVIDERS: Internal Medicine; Nurse Practitioner Adult Health; Nurse Practitioner Family; Pediatrics
DX: E11.65 Type 2 diabetes mellitus with hyperglycemia (principal); S42.212A Unspecified displaced fracture of surgical neck of left humerus, initial encounter for closed fracture; M25.532 Pain in left wrist; M54.2 Cervicalgia; W01.0XXA Fall on same level from slipping, tripping and stumbling without subsequent striking against object, initial encounter; Y92.009 Unspecified place in unspecified non-institutional (private) residence as the place of occurrence of the external cause; R29.6 Repeated falls; I10 Essential (primary) hypertension; J43.9 Emphysema, unspecified; D75.9 Disease of blood and blood-forming organs, unspecified; K21.9 Gastro-esophageal reflux disease without esophagitis; E78.00 Pure hypercholesterolemia, unspecified; F32.9 Major depressive disorder, single episode, unspecified; F41.9 Anxiety disorder, unspecified; E66.9 Obesity, unspecified; Z68.38 Body mass index [BMI] 38.0-38.9, adult; Z87.442 Personal history of urinary calculi; Z75.1 Person awaiting admission to adequate facility elsewhere; Z79.4 Long term (current) use of insulin; Z85.3 Personal history of malignant neoplasm of breast; Z79.82 Long term (current) use of aspirin; Z87.891 Personal history of nicotine dependence; Z91.81 History of falling; Z98.84 Bariatric surgery status
CPT/HCPCS: 70450; 71010; 73030; 73060; 80048; 80053; 81003; 82948; 84484; 85025; 85027; 93005; 97530 GO; 97530 GP; 99281; 99285; G0378; G8978 GP CM; G8979 CJ; G8987 CK; G8988 GO CJ; J1170; J1650; J1815; J3010; J7030

== ENCOUNTER 2017-11-23 14:34 | Emergency (ER) | payer OTHER ==
[~2017-11-23] VITALS: Ht 162.6 cm; Wt 99.5 kg
[~2017-11-23 14:34] MED LIST changes: +ALEVE220 M2 PO; +ASPIRIN81 M2 PO; +DOCUSATE SODIU100 MG PO; +ENDOCET 5-3251 EACH PO; +LEVEMIR100 UNIT/2 SC; +LISINOPRIL40 MG PO
[2017-11-23 15:28] LABS: HEMATOCRIT 27.9 % (36.0-46.0); HEMOGLOBIN 8.8 G/DL (11.9-15.5); MCH 24.2 PG (29.0-34.0); MCHC 31.5 G/DL (30.0-36.0); MCV 76.6 FL (83-99); PLATELET COUNT 160 K/uL (156-360); RBC DIS.WIDTH-CV 17.6 % (11.8-14.6); RBC DIS.WIDTH-SD 49.2 % (39-53); RED BLOOD COUNT 3.64 M/uL (3.80-5.20); WHITE BLOOD COUNT 5.3 K/uL (4.1-10.2)
[2017-11-23 15:37] LABS: CHLORIDE 106 mEq/L (99-109); POTASSIUM 3.9 mEq/L (3.7-5.4); SODIUM 138 mEq/L (136-147)
[2017-11-23 15:38] LABS: GLUCOSE 200 mg/dL (70-99)
[2017-11-23 15:42] LABS: CREATININE 0.8 mg/dL (0.6-1.3); GFR ESTIMATE (CALCULATED) > 59 mL/min/
[2017-11-23 15:43] LABS: UREA NITROGEN (BUN) 20 mg/dL (9-23)
[2017-11-23 15:52] LABS: TROP-I INTERPRETATION NEGATIVE; TROPONIN-I < 0.01 ng/mL (0.0-0.30)
[2017-11-23 17:46] LABS: APPEARANCE SL.HAZY ((CLEAR)); BILIRUBIN NEGATIVE; BLOOD NEGATIVE; COLOR YELLOW ((YELLOW)); GLUCOSE (STRIP) NEGATIVE; KETONES NEGATIVE; LEUKOCYTES NEGATIVE; NITRITE NEGATIVE; PROTEIN (STRIP) 100; SPECIFIC GRAVITY 1.013 (1.000-1.030); UROBILINOGEN 0.2 MG/DL (0.2-1.0)
[2017-11-23 18:10] LABS: BACTERIA NONE SEEN /HPF; EPITHELIAL CELLS 1+ /HPF; MUCUS NONE SEEN /LPF; RED BLOOD CELLS 0-5 /HPF (0-5); UCUL ADDED? NO; WHITE BLOOD CELLS 0-5 /HPF (0-5)
[2017-11-23 19:01] VITALS: BP 175/80
== END 2017-11-23 19:02 | disposition home or self-care (01) ==
LOC: EME 14:34
PROVIDERS: Emergency Medicine
DX: R53.1 Weakness (principal); R60.0 Localized edema; D64.9 Anemia, unspecified; E11.9 Type 2 diabetes mellitus without complications; Z79.4 Long term (current) use of insulin; I10 Essential (primary) hypertension; K21.9 Gastro-esophageal reflux disease without esophagitis; Z87.442 Personal history of urinary calculi; F41.9 Anxiety disorder, unspecified; F31.9 Bipolar disorder, unspecified; Z85.3 Personal history of malignant neoplasm of breast; Z88.5 Allergy status to narcotic agent
CPT/HCPCS: 71046; 80048; 81003; 83880; 84484; 85027; 93005; 99281; 99285

== ENCOUNTER 2017-11-28 16:38 | Emergency (ER) | payer OTHER ==
[~2017-11-28] VITALS: Ht 160 cm; Wt 93.4 kg
[2017-11-28 17:21] LABS: BASOPHIL (%) 0.4 % (0-1); EOSINOPHIL (%) 5.1 % (0-5); EOSINOPHIL COUNT 0.3 K/uL (0-0.3); HEMATOCRIT 27.8 % (36.0-46.0); HEMOGLOBIN 8.7 G/DL (11.9-15.5); IMMATURE GRANULOCYTE (%) 0.2 % (0.0-0.7); LYMPHOCYTE (%) 34.9 % (15-42); MCH 24.2 PG (29.0-34.0); MCHC 31.3 G/DL (30.0-36.0); MCV 77.4 FL (83-99); MONOCYTE (%) 13.2 % (3-12); MONOCYTE COUNT 0.8 K/uL (0-0.8); NEUTROPHIL (%) 46.2 % (45-76); NEUTROPHIL COUNT 2.6 K/uL (1.8-6.4); PLATELET COUNT 163 K/uL (156-360); RBC DIS.WIDTH-SD 50.8 % (39-53); RED BLOOD COUNT 3.59 M/uL (3.80-5.20); WHITE BLOOD COUNT 5.7 K/uL (4.1-10.2)
[2017-11-28 17:30] LABS: CHLORIDE 106 mEq/L (99-109); POTASSIUM 3.9 mEq/L (3.7-5.4); SODIUM 141 mEq/L (136-147)
[2017-11-28 17:32] LABS: GLUCOSE 96 mg/dL (70-99); TOTAL PROTEIN 7.1 g/dL (6.4-8.3)
[2017-11-28 17:34] LABS: TOTAL BILIRUBIN 0.5 mg/dL (0.0-1.0)
[2017-11-28 17:36] LABS: ALKALINE PHOSPHATASE 222 IU/L (3-129); CREATININE 0.7 mg/dL (0.6-1.3); GFR ESTIMATE (CALCULATED) > 59 mL/min/
[2017-11-28 17:37] LABS: AST (GOT) 41 IU/L (2-34); UREA NITROGEN (BUN) 10 mg/dL (9-23)
[2017-11-28 17:39] LABS: ALT (GPT) 21 IU/L (3-49)
[2017-11-28 17:42] LABS: TROP-I INTERPRETATION NEGATIVE; TROPONIN-I < 0.01 ng/mL (0.0-0.30)
[2017-11-28 19:20] LABS: APPEARANCE CLEAR ((CLEAR)); BILIRUBIN NEGATIVE; BLOOD NEGATIVE; COLOR YELLOW ((YELLOW)); GLUCOSE (STRIP) NEGATIVE; KETONES NEGATIVE; LEUKOCYTES NEGATIVE; NITRITE NEGATIVE; PROTEIN (STRIP) 100; SPECIFIC GRAVITY 1.012 (1.000-1.030); UROBILINOGEN 0.2 MG/DL (0.2-1.0)
[2017-11-28 19:47] LABS: BACTERIA RARE /HPF; EPITHELIAL CELLS 1+ /HPF; HYALINE CASTS 0-5 /LPF; MUCUS TRACE /LPF; RED BLOOD CELLS 0-5 /HPF (0-5); UCUL ADDED? NO; WHITE BLOOD CELLS 0-5 /HPF (0-5)
[2017-11-28] MEDS ORDERED: BUSPAR5 MG PO (20:07)
[2017-11-28] MEDS ORDERED: ZYPREXA5 MG PO (20:09)
[2017-11-28] MEDS ORDERED: LASIX20 MG PO ×2 (20:09→21:32)
[2017-11-28] MEDS ORDERED: NORVASC10 MG PO (20:13)
[2017-11-28] MEDS ORDERED: PRINIVIL20 MG PO (20:14)
[2017-11-28] MEDS ORDERED: QUESTRAN PACKET4 GM PO (20:16)
[2017-11-28] MEDS ORDERED: PREDNISONE50 MG PO (21:37)
[2017-11-28] MEDS ORDERED: PROVENTIL HFA6.7 GM IH (21:38)
[2017-11-28 22:07] VITALS: BP 159/72
== END 2017-11-28 22:17 | disposition home or self-care (01) ==
LOC: EME 16:38
PROVIDERS: Emergency Medicine
DX: R06.00 Dyspnea, unspecified (principal); D64.9 Anemia, unspecified; I10 Essential (primary) hypertension; E11.9 Type 2 diabetes mellitus without complications; K21.9 Gastro-esophageal reflux disease without esophagitis; F31.9 Bipolar disorder, unspecified; F32.9 Major depressive disorder, single episode, unspecified; F41.9 Anxiety disorder, unspecified; Z87.442 Personal history of urinary calculi; Z85.3 Personal history of malignant neoplasm of breast; Z79.4 Long term (current) use of insulin; Z90.49 Acquired absence of other specified parts of digestive tract; Z88.5 Allergy status to narcotic agent; Z88.8 Allergy status to other drugs, medicaments and biological substances
CPT/HCPCS: 71046; 80053; 81003; 82948; 83880; 84484; 85025; 93005; 94640; 94640 76; J1940; J2930

== ENCOUNTER 2017-12-21 08:44 | Observation (INO) | payer OTHER ==
[~2017-12-21] VITALS: Ht 160 cm; Wt 104.1 kg
[~2017-12-21 08:44] MED LIST changes: +BUSPAR5 MG PO; +LASIX20 MG PO; +NORVASC10 MG PO; +PREDNISONE50 MG PO; +PRINIVIL20 MG PO; +PROVENTIL HFA6.7 GM IH; +QUESTRAN PACKET4 GM PO; +ZYPREXA5 MG PO
[2017-12-21 10:06] LABS: HEMATOCRIT 29.6 % (36.0-46.0); HEMOGLOBIN 9.4 G/DL (11.9-15.5); MCH 23.4 PG (29.0-34.0); MCHC 31.8 G/DL (30.0-36.0); MCV 73.8 FL (83-99); PLATELET COUNT 187 K/uL (156-360); RBC DIS.WIDTH-CV 17.4 % (11.8-14.6); RBC DIS.WIDTH-SD 46.5 % (39-53); RED BLOOD COUNT 4.01 M/uL (3.80-5.20); WHITE BLOOD COUNT 4.4 K/uL (4.1-10.2)
[2017-12-21 10:13] LABS: CHLORIDE 105 mEq/L (99-109); POTASSIUM 3.9 mEq/L (3.7-5.4); SODIUM 142 mEq/L (136-147)
[2017-12-21 10:15] LABS: GLUCOSE 58 mg/dL (70-99)
[2017-12-21 10:19] LABS: CREATININE 0.7 mg/dL (0.6-1.3); GFR ESTIMATE (CALCULATED) > 59 mL/min/
[2017-12-21 10:20] LABS: UREA NITROGEN (BUN) 12 mg/dL (9-23)
[2017-12-21 10:22] LABS: TROP-I INTERPRETATION NEGATIVE; TROPONIN-I < 0.01 ng/mL (0.0-0.30)
[2017-12-21 13:25] LABS: TROP-I INTERPRETATION NEGATIVE; TROPONIN-I < 0.01 ng/mL (0.0-0.30)
[2017-12-21 15:30] VITALS: BP 164/70
[2017-12-21 19:50] LABS: TROP-I INTERPRETATION NEGATIVE; TROPONIN-I 0.02 ng/mL (0.0-0.30)
[2017-12-21 20:15] VITALS: BP 171/72
[2017-12-22 00:03] VITALS: BP 125/57
[2017-12-22 01:57] LABS: TROP-I INTERPRETATION NEGATIVE; TROPONIN-I < 0.01 ng/mL (0.0-0.30)
[2017-12-22 03:09] VITALS: BP 130/59
[2017-12-22 06:28] LABS: CHLORIDE 102 MEQ/L (99-109); CREATININE 0.8 MG/DL (0.6-1.3); GFR ESTIMATE (CALCULATED) > 59 mL/min/; GLUCOSE 78 mg/dL (70-99); POTASSIUM 3.7 MEQ/L (3.7-5.4); SODIUM 138 MEQ/L (136-147); UREA NITROGEN (BUN) 11 mg/dL (9-23)
[2017-12-22 08:45] VITALS: BP 137/89
[2017-12-22 12:16] VITALS: BP 1620/71
== END 2017-12-22 16:20 | disposition home or self-care (01) ==
LOC: EME 08:44 → EDOF 13:59 → ENRESERV 14:16 → EDOF 14:17 → ENRESERV 14:28 → 5WEST 15:25
PROVIDERS: Emergency Medicine; Internal Medicine
DX: R07.89 Other chest pain (principal); R94.31 Abnormal electrocardiogram [ECG] [EKG]; E11.9 Type 2 diabetes mellitus without complications; Z79.4 Long term (current) use of insulin; R20.0 Anesthesia of skin; R51 Headache; I11.0 Hypertensive heart disease with heart failure; I50.9 Heart failure, unspecified; D64.9 Anemia, unspecified; I25.10 Atherosclerotic heart disease of native coronary artery without angina pectoris; E66.01 Morbid (severe) obesity due to excess calories; Z68.41 Body mass index [BMI] 40.0-44.9, adult; Z85.3 Personal history of malignant neoplasm of breast; Z87.442 Personal history of urinary calculi; Z90.49 Acquired absence of other specified parts of digestive tract; Z90.710 Acquired absence of both cervix and uterus; Z79.82 Long term (current) use of aspirin; Z88.5 Allergy status to narcotic agent; Z88.8 Allergy status to other drugs, medicaments and biological substances
CPT/HCPCS: 70450; 71045; 80048; 82948; 83880; 84484; 85027; 93005; G0378; J1650; J1940; J2405

== ENCOUNTER 2018-01-10 19:28 | Observation (INO) | payer OTHER ==
[~2018-01-10] VITALS: Ht 160 cm; Wt 97.2 kg
[2018-01-10 20:25] LABS: HEMATOCRIT 30.6 % (36.0-46.0); HEMOGLOBIN 9.5 G/DL (11.9-15.5); MCH 22.4 PG (29.0-34.0); PLATELET COUNT 165 K/uL (156-360); RBC DIS.WIDTH-CV 18.5 % (11.8-14.6); RBC DIS.WIDTH-SD 47.7 % (39-53); RED BLOOD COUNT 4.25 M/uL (3.80-5.20); WHITE BLOOD COUNT 4.7 K/uL (4.1-10.2)
[2018-01-10 20:33] LABS: ALBUMIN 3.3 g/dL (3.2-4.8); CHLORIDE 105 mEq/L (99-109); POTASSIUM 4.1 mEq/L (3.7-5.4); SODIUM 141 mEq/L (136-147)
[2018-01-10 20:35] LABS: GLUCOSE 145 mg/dL (70-99)
[2018-01-10 20:36] LABS: TOTAL PROTEIN 6.9 g/dL (6.4-8.3)
[2018-01-10 20:37] LABS: TOTAL BILIRUBIN 0.6 mg/dL (0.0-1.0)
[2018-01-10 20:39] LABS: ALKALINE PHOSPHATASE 134 IU/L (3-129); CREATININE 0.8 mg/dL (0.6-1.3); GFR ESTIMATE (CALCULATED) > 59 mL/min/
[2018-01-10 20:40] LABS: UREA NITROGEN (BUN) 10 mg/dL (9-23)
[2018-01-10 20:41] LABS: AST (GOT) 40 IU/L (2-34)
[2018-01-10 20:42] LABS: ALT (GPT) 19 IU/L (3-49)
[2018-01-10 22:17] LABS: LIPASE 12 U/L (1.0-51.0)
[2018-01-10 23:45] LABS: TROP-I INTERPRETATION NEGATIVE; TROPONIN-I < 0.01 ng/mL (0.0-0.30)
[2018-01-11 02:47] LABS: APPEARANCE CLEAR ((CLEAR)); BILIRUBIN NEGATIVE; BLOOD SMALL; COLOR YELLOW ((YELLOW)); GLUCOSE (STRIP) NEGATIVE; KETONES NEGATIVE; LEUKOCYTES NEGATIVE; NITRITE NEGATIVE; PROTEIN (STRIP) >=500; SPECIFIC GRAVITY 1.012 (1.000-1.030)
[2018-01-11 02:50] LABS: BACTERIA RARE /HPF; EPITHELIAL CELLS 1+ /HPF; MUCUS TRACE /LPF; UCUL ADDED? NO; WHITE BLOOD CELLS 0-5 /HPF (0-5)
[2018-01-11 03:19] LABS: TROP-I INTERPRETATION NEGATIVE; TROPONIN-I < 0.01 ng/mL (0.0-0.30)
[2018-01-11] MEDS ORDERED: LOTREL 10/21 CAPSULE PO (08:22)
[2018-01-11 09:08] LABS: TROP-I INTERPRETATION NEGATIVE; TROPONIN-I < 0.01 ng/mL (0.0-0.30)
[2018-01-11] MEDS ORDERED: CHOLESTYRAMINE P4 GM PO (15:21)
[2018-01-11 17:25] VITALS: BP 170/61
== END 2018-01-11 17:10 | disposition home or self-care (01) ==
LOC: EME 19:28 → EDOF 01-11 02:23 → ENRESERV 01-11 02:23 → EDOF 01-11 02:23 → ENRESERV 01-11 02:50 → CANRESERV 01-11 03:00 → EDOF 01-11 17:10
PROVIDERS: Hospitalist
DX: R07.89 Other chest pain (principal); E11.65 Type 2 diabetes mellitus with hyperglycemia; E11.40 Type 2 diabetes mellitus with diabetic neuropathy, unspecified; E11.649 Type 2 diabetes mellitus with hypoglycemia without coma; Z83.3 Family history of diabetes mellitus; G89.29 Other chronic pain; F32.9 Major depressive disorder, single episode, unspecified; F41.9 Anxiety disorder, unspecified; K21.9 Gastro-esophageal reflux disease without esophagitis; I11.0 Hypertensive heart disease with heart failure; I50.32 Chronic diastolic (congestive) heart failure; R94.31 Abnormal electrocardiogram [ECG] [EKG]; G43.909 Migraine, unspecified, not intractable, without status migrainosus; Z85.3 Personal history of malignant neoplasm of breast; Z92.3 Personal history of irradiation; E66.9 Obesity, unspecified; R60.0 Localized edema; Z90.49 Acquired absence of other specified parts of digestive tract; Z79.4 Long term (current) use of insulin; Z90.710 Acquired absence of both cervix and uterus; Z88.5 Allergy status to narcotic agent; Z80.3 Family history of malignant neoplasm of breast; Z84.1 Family history of disorders of kidney and ureter; Z82.49 Family history of ischemic heart disease and other diseases of the circulatory system; Z82.0 Family history of epilepsy and other diseases of the nervous system
CPT/HCPCS: 71046; 71275; 80053; 81003; 82948; 83690; 84484; 85027; 85379; 93005; 93970; 94640; 99202; G0378; J0360; J1650; J7030; S0028

== ENCOUNTER 2018-02-11 04:20 | Inpatient (IN) | payer OTHER ==
[2018-02-11] VITALS (9 sets, daily range): BP systolic 134–185; BP diastolic 68–78
[~2018-02-11] VITALS: Ht 160 cm; Wt 102.2 kg
[~2018-02-11 04:20] MED LIST changes: +CHOLESTYRAMINE P4 GM PO
[2018-02-11 05:52] LABS: INTER. NORMALIZED RATIO 1.2
[2018-02-11 05:54] LABS: BASOPHIL (%) 0.4 % (0-1); EOSINOPHIL (%) 5.1 % (0-5); EOSINOPHIL COUNT 0.3 K/uL (0-0.3); HEMATOCRIT 25.9 % (36.0-46.0); HEMOGLOBIN 8.2 G/DL (11.9-15.5); IMMATURE GRANULOCYTE (%) 0.2 % (0.0-0.7); LYMPHOCYTE (%) 34.4 % (15-42); LYMPHOCYTE COUNT 1.8 K/uL (1.0-2.8); MCH 22.9 PG (29.0-34.0); MCHC 31.7 G/DL (30.0-36.0); MCV 72.3 FL (83-99); MONOCYTE (%) 14.3 % (3-12); MONOCYTE COUNT 0.7 K/uL (0-0.8); NEUTROPHIL (%) 45.6 % (45-76); NEUTROPHIL COUNT 2.3 K/uL (1.8-6.4); PLATELET COUNT 141 K/uL (156-360); RBC DIS.WIDTH-SD 55.2 % (39-53); RED BLOOD COUNT 3.58 M/uL (3.80-5.20); WHITE BLOOD COUNT 5.1 K/uL (4.1-10.2)
[2018-02-11 05:55] LABS: PTT 30.3 SEC (25-37)
[2018-02-11 06:00] LABS: ALBUMIN 2.8 g/dL (3.2-4.8)
[2018-02-11 06:01] LABS: CHLORIDE 107 mEq/L (99-109); POTASSIUM 3.7 mEq/L (3.7-5.4); SODIUM 140 mEq/L (136-147)
[2018-02-11 06:03] LABS: GLUCOSE 54 mg/dL (70-99); TOTAL PROTEIN 6.1 g/dL (6.4-8.3)
[2018-02-11 06:05] LABS: TOTAL BILIRUBIN 0.3 mg/dL (0.0-1.0)
[2018-02-11 06:06] LABS: ALKALINE PHOSPHATASE 180 IU/L (3-129)
[2018-02-11 06:07] LABS: CREATININE 0.8 mg/dL (0.6-1.3); GFR ESTIMATE (CALCULATED) > 59 mL/min/
[2018-02-11 06:08] LABS: AST (GOT) 35 IU/L (2-34); UREA NITROGEN (BUN) 14 mg/dL (9-23)
[2018-02-11 06:10] LABS: ALT (GPT) 19 IU/L (3-49)
[2018-02-11] MEDS ORDERED: VENTOLIN HFA18 GM IH (08:23)
[2018-02-11 11:56] LABS: HEMATOCRIT 23.6 % (36.0-46.0); HEMOGLOBIN 7.4 G/DL (11.9-15.5)
[2018-02-11 19:52] LABS: HEMATOCRIT 28.8 % (36.0-46.0); MCV 75.2 FL (83-99)
[2018-02-11 20:07] LABS: HEMOGLOBIN 9.4 G/DL (11.9-15.5)
[2018-02-12 00:34] LABS: HEMATOCRIT 29.1 % (36.0-46.0); MCV 78.9 FL (83-99)
[2018-02-12 04:07] VITALS: BP 180/75
[2018-02-12 06:19] LABS: BASOPHIL (%) 0.1 % (0-1); EOSINOPHIL (%) 0 % (0-5); HEMATOCRIT 25.3 % (36.0-46.0); HEMOGLOBIN 8.2 G/DL (11.9-15.5); IMMATURE GRANULOCYTE (%) 0.4 % (0.0-0.7); LYMPHOCYTE (%) 5.2 % (15-42); LYMPHOCYTE COUNT 0.8 K/uL (1.0-2.8); MCH 24.7 PG (29.0-34.0); MCHC 32.4 G/DL (30.0-36.0); MCV 76.2 FL (83-99); MONOCYTE (%) 4.1 % (3-12); MONOCYTE COUNT 0.6 K/uL (0-0.8); NEUTROPHIL (%) 90.2 % (45-76); RBC DIS.WIDTH-CV 20.1 % (11.8-14.6); RBC DIS.WIDTH-SD 55.5 % (39-53); RED BLOOD COUNT 3.32 M/uL (3.80-5.20); WHITE BLOOD COUNT 15.5 K/uL (4.1-10.2)
[2018-02-12 06:27] LABS: CHLORIDE 113 MEQ/L (99-109); CREATININE 0.8 MG/DL (0.6-1.3); GFR ESTIMATE (CALCULATED) > 59 mL/min/; GLUCOSE 115 mg/dL (70-99); POTASSIUM 3.7 MEQ/L (3.7-5.4); SODIUM 143 MEQ/L (136-147); UREA NITROGEN (BUN) 17 mg/dL (9-23)
[2018-02-12 06:57] LABS: PLAT.SUFFICIENCY DECREASED; PLATELET COUNT 130 K/uL (156-360)
[2018-02-12 08:00] VITALS: BP 165/73
[2018-02-12 08:44] LABS: HEMATOCRIT 23.8 % (36.0-46.0); HEMOGLOBIN 7.7 G/DL (11.9-15.5); MCV 76.5 FL (83-99)
[2018-02-12 10:20] LABS: HEMOGLOBIN A1c (GLYCOHEMOGLOB) 5.5 % (Below 5.7)
[2018-02-12 10:43] VITALS: BP 174/69
[2018-02-12 15:29] VITALS: BP 156/67
[2018-02-12 15:55] LABS: HEMATOCRIT 26.3 % (36.0-46.0); HEMOGLOBIN 8.4 G/DL (11.9-15.5); MCV 76.5 FL (83-99)
[2018-02-12 19:15] VITALS: BP 166/74
[2018-02-12 21:30] LABS: HEMATOCRIT 24.2 % (36.0-46.0); HEMOGLOBIN 7.6 G/DL (11.9-15.5); MCV 76.8 FL (83-99)
[2018-02-12 23:00] VITALS: BP 135/60
[2018-02-13] VITALS (9 sets, daily range): BP systolic 127–162; BP diastolic 58–74
[2018-02-13 06:38] LABS: BASOPHIL (%) 0.2 % (0-1); EOSINOPHIL (%) 2.3 % (0-5); EOSINOPHIL COUNT 0.3 K/uL (0-0.3); HEMATOCRIT 22.9 % (36.0-46.0); HEMOGLOBIN 7.2 G/DL (11.9-15.5); IMMATURE GRANULOCYTE (%) 0.4 % (0.0-0.7); LYMPHOCYTE (%) 17.9 % (15-42); LYMPHOCYTE COUNT 2.2 K/uL (1.0-2.8); MCH 24.4 PG (29.0-34.0); MCHC 31.4 G/DL (30.0-36.0); MCV 77.6 FL (83-99); MONOCYTE (%) 6.3 % (3-12); MONOCYTE COUNT 0.8 K/uL (0-0.8); NEUTROPHIL (%) 72.9 % (45-76); NEUTROPHIL COUNT 8.8 K/uL (1.8-6.4); PLATELET COUNT 160 K/uL (156-360); RBC DIS.WIDTH-CV 20.7 % (11.8-14.6); RBC DIS.WIDTH-SD 57.9 % (39-53); RED BLOOD COUNT 2.95 M/uL (3.80-5.20); WHITE BLOOD COUNT 12.1 K/uL (4.1-10.2)
[2018-02-13 07:19] LABS: ALBUMIN 2.3 G/DL (3.2-4.8); ALKALINE PHOSPHATASE 80 IU/L (3-129); ALT (GPT) 13 IU/L (3-49); AST (GOT) 25 IU/L (2-34); CHLORIDE 112 MEQ/L (99-109); CREATININE 0.9 MG/DL (0.6-1.3); GFR ESTIMATE (CALCULATED) > 59 mL/min/; GLUCOSE 142 mg/dL (70-99); POTASSIUM 3.7 MEQ/L (3.7-5.4); SODIUM 141 MEQ/L (136-147); TOTAL BILIRUBIN 0.3 MG/DL (0.0-1.0); TOTAL PROTEIN 4.9 G/DL (6.4-8.3); UREA NITROGEN (BUN) 18 mg/dL (9-23)
[2018-02-13 08:06] LABS: FERRITIN 21 NG/ML (10-291)
[2018-02-13 10:13] LABS: HEPATITIS B SURFACE ANTIGEN Nonreactive; HEPATITIS C ANTIBODY Nonreactive
[2018-02-13 10:14] LABS: HEPATITIS B SURFACE ANTIBODY Nonreactive
[2018-02-13 15:47] LABS: HEMATOCRIT 30.1 % (36.0-46.0); MCV 79.4 FL (83-99)
[2018-02-13 15:55] LABS: HEMOGLOBIN 9.6 G/DL (11.9-15.5)
[2018-02-13 21:49] LABS: HEMATOCRIT 27.6 % (36.0-46.0); HEMOGLOBIN 9.1 G/DL (11.9-15.5); MCV 78.6 FL (83-99)
[2018-02-14 00:43] VITALS: BP 171/72
[2018-02-14 04:18] VITALS: BP 149/65
[2018-02-14 06:35] LABS: HEMATOCRIT 25.9 % (36.0-46.0); HEMOGLOBIN 8.2 G/DL (11.9-15.5); MCV 78.7 FL (83-99)
[2018-02-14 07:24] VITALS: BP 165/68
[2018-02-14 09:11] LABS: CHLORIDE 114 MEQ/L (99-109); POTASSIUM 3.6 MEQ/L (3.7-5.4); SODIUM 141 MEQ/L (136-147)
[2018-02-14 09:16] LABS: CREATININE 0.8 MG/DL (0.6-1.3); GFR ESTIMATE (CALCULATED) > 59 mL/min/; GLUCOSE 134 mg/dL (70-99); UREA NITROGEN (BUN) 14 mg/dL (9-23)
[2018-02-14 10:55] VITALS: BP 170/71
[2018-02-14 11:01] LABS: BASOPHIL (%) 0.3 % (0-1); EOSINOPHIL (%) 8.2 % (0-5); EOSINOPHIL COUNT 0.8 K/uL (0-0.3); IMMATURE GRANULOCYTE (%) 0.3 % (0.0-0.7); LYMPHOCYTE (%) 22.6 % (15-42); LYMPHOCYTE COUNT 2.2 K/uL (1.0-2.8); MCHC 31.3 G/DL (30.0-36.0); MONOCYTE (%) 7.4 % (3-12); MONOCYTE COUNT 0.7 K/uL (0-0.8); NEUTROPHIL (%) 61.2 % (45-76); NEUTROPHIL COUNT 5.9 K/uL (1.8-6.4); PLATELET COUNT 159 K/uL (156-360); RBC DIS.WIDTH-CV 20.1 % (11.8-14.6); RBC DIS.WIDTH-SD 59.1 % (39-53); RED BLOOD COUNT 3.28 M/uL (3.80-5.20); WHITE BLOOD COUNT 9.7 K/uL (4.1-10.2)
[2018-02-14 13:49] LABS: HEMATOCRIT 29.1 % (36.0-46.0); MCV 80.4 FL (83-99)
[2018-02-14 16:52] VITALS: BP 198/78
[2018-02-14 18:24] LABS: HEMATOCRIT 28.9 % (36.0-46.0); HEMOGLOBIN 9.2 G/DL (11.9-15.5); MCHC 31.8 G/DL (30.0-36.0); MCV 78.5 FL (83-99); PLATELET COUNT 131 K/uL (156-360); RBC DIS.WIDTH-CV 19.8 % (11.8-14.6); RBC DIS.WIDTH-SD 57.2 % (39-53); RED BLOOD COUNT 3.68 M/uL (3.80-5.20); WHITE BLOOD COUNT 10.6 K/uL (4.1-10.2)
[2018-02-14 20:43] VITALS: BP 149/65
[2018-02-14 22:34] LABS: HEMATOCRIT 28.5 % (36.0-46.0); HEMOGLOBIN 9.3 G/DL (11.9-15.5); MCV 78.3 FL (83-99)
[2018-02-15 00:56] VITALS: BP 149/65
[2018-02-15 05:43] LABS: BASOPHIL (%) 0.1 % (0-1); EOSINOPHIL (%) 9.4 % (0-5); EOSINOPHIL COUNT 0.9 K/uL (0-0.3); HEMATOCRIT 26.1 % (36.0-46.0); HEMOGLOBIN 8.4 G/DL (11.9-15.5); IMMATURE GRANULOCYTE (%) 0.4 % (0.0-0.7); LYMPHOCYTE (%) 22.8 % (15-42); LYMPHOCYTE COUNT 2.1 K/uL (1.0-2.8); MCH 25.1 PG (29.0-34.0); MCHC 32.2 G/DL (30.0-36.0); MCV 77.9 FL (83-99); MONOCYTE (%) 7.7 % (3-12); MONOCYTE COUNT 0.7 K/uL (0-0.8); NEUTROPHIL (%) 59.6 % (45-76); NEUTROPHIL COUNT 5.4 K/uL (1.8-6.4); PLATELET COUNT 169 K/uL (156-360); RBC DIS.WIDTH-CV 19.9 % (11.8-14.6); RBC DIS.WIDTH-SD 56.4 % (39-53); RED BLOOD COUNT 3.35 M/uL (3.80-5.20); WHITE BLOOD COUNT 9.1 K/uL (4.1-10.2)
[2018-02-15 05:49] VITALS: BP 142/68
[2018-02-15 06:16] LABS: CHLORIDE 110 MEQ/L (99-109); CREATININE 0.7 MG/DL (0.6-1.3); GFR ESTIMATE (CALCULATED) > 59 mL/min/; POTASSIUM 3.4 MEQ/L (3.7-5.4); SODIUM 140 MEQ/L (136-147); UREA NITROGEN (BUN) 10 mg/dL (9-23)
[2018-02-15 06:18] LABS: GLUCOSE 100 mg/dL (70-99)
[2018-02-15 11:09] LABS: INTER. NORMALIZED RATIO 1.2
[2018-02-15 11:12] LABS: PTT 25.4 SEC (25-37)
[2018-02-15 11:59] VITALS: BP 125/74
[2018-02-15 16:11] VITALS: BP 178/98
[2018-02-15 16:24] LABS: MITOCHONDRIAL (M2) ANTIBODIES+ <=20.0 U (<=20.0)
[2018-02-15 16:56] LABS: ANTI-SMOOTH MUSCLE (Actin)+ <20 U (<20)
[2018-02-15 19:38] LABS: HEMATOCRIT 26.5 % (36.0-46.0); HEMOGLOBIN 8.4 G/DL (11.9-15.5); MCV 78.2 FL (83-99)
[2018-02-15 20:01] VITALS: BP 190/81
[2018-02-15 20:35] VITALS: BP 180/66
[2018-02-15 23:50] LABS: HEMATOCRIT 25.1 % (36.0-46.0); HEMOGLOBIN 8.3 G/DL (11.9-15.5); MCV 77.2 FL (83-99)
[2018-02-16] VITALS (7 sets, daily range): BP systolic 146–194; BP diastolic 65–81
[2018-02-16 05:36] LABS: HEMATOCRIT 25.6 % (36.0-46.0); HEMOGLOBIN 8.1 G/DL (11.9-15.5); MCV 78.5 FL (83-99)
[2018-02-16 17:49] LABS: HEMATOCRIT 28.2 % (36.0-46.0); HEMOGLOBIN 8.9 G/DL (11.9-15.5); MCV 78.3 FL (83-99)
[2018-02-17 04:49] VITALS: BP 177/77
[2018-02-17 05:55] LABS: HEMATOCRIT 24.5 % (36.0-46.0); HEMOGLOBIN 7.9 G/DL (11.9-15.5); MCH 25.1 PG (29.0-34.0); MCHC 32.2 G/DL (30.0-36.0); MCV 77.8 FL (83-99); PLATELET COUNT 176 K/uL (156-360); RBC DIS.WIDTH-CV 20.7 % (11.8-14.6); RBC DIS.WIDTH-SD 58.5 % (39-53); RED BLOOD COUNT 3.15 M/uL (3.80-5.20); WHITE BLOOD COUNT 7.9 K/uL (4.1-10.2)
[2018-02-17 06:29] LABS: ALBUMIN 2.2 G/DL (3.2-4.8); ALKALINE PHOSPHATASE 90 IU/L (3-129); ALT (GPT) 12 IU/L (3-49); AST (GOT) 18 IU/L (2-34); CHLORIDE 107 MEQ/L (99-109); CREATININE 0.8 MG/DL (0.6-1.3); GFR ESTIMATE (CALCULATED) > 59 mL/min/; GLUCOSE 140 mg/dL (70-99); POTASSIUM 3.7 MEQ/L (3.7-5.4); SODIUM 140 MEQ/L (136-147); TOTAL PROTEIN 4.8 G/DL (6.4-8.3); UREA NITROGEN (BUN) 8 mg/dL (9-23)
[2018-02-17 06:30] LABS: TOTAL BILIRUBIN 0.4 MG/DL (0.0-1.0)
[2018-02-17 08:00] VITALS: BP 199/78
[2018-02-17 11:28] VITALS: BP 197/86
[2018-02-17 16:00] VITALS: BP 161/81
[2018-02-17 23:41] VITALS: BP 145/68
[2018-02-18 05:56] LABS: HEMATOCRIT 25.4 % (36.0-46.0); HEMOGLOBIN 8.1 G/DL (11.9-15.5); MCH 24.7 PG (29.0-34.0); MCHC 31.9 G/DL (30.0-36.0); MCV 77.4 FL (83-99); PLATELET COUNT 188 K/uL (156-360); RBC DIS.WIDTH-CV 20.8 % (11.8-14.6); RBC DIS.WIDTH-SD 58.4 % (39-53); RED BLOOD COUNT 3.28 M/uL (3.80-5.20); WHITE BLOOD COUNT 8.9 K/uL (4.1-10.2)
[2018-02-18 06:13] LABS: ALBUMIN 2.4 G/DL (3.2-4.8); CHLORIDE 104 MEQ/L (99-109); CREATININE 0.8 MG/DL (0.6-1.3); GFR ESTIMATE (CALCULATED) > 59 mL/min/; GLUCOSE 153 mg/dL (70-99); PHOSPHORUS 2.8 mg/dL (2.5-4.9); POTASSIUM 3.4 MEQ/L (3.7-5.4); SODIUM 138 MEQ/L (136-147); UREA NITROGEN (BUN) 11 mg/dL (9-23)
[2018-02-18 07:06] VITALS: BP 114/57
[2018-02-18] MEDS ORDERED: HYDROCHLOROTHIA25 MG PO (10:11)
== END 2018-02-18 12:27 | disposition home health service (06) | DRG 330 ==
LOC: EME 04:20 → EDOF 07:46 → 5EAST 07:46 → 4EAST 07:46 → ENRESERV 07:48 → 5EAST 10:57 → ENRESERV 12:13 → 5EAST 12:14 → ENRESERV 12:27 → 4EAST 13:50 → ENRESERV 02-15 07:20 → 5SOUTH 02-15 11:35
PROVIDERS: Emergency Medicine; Hospitalist; Internal Medicine Gastroenterology; Nurse Practitioner Adult Health; Physician Assistant Medical; Student in an Organized Health Care Education/Training Program; Surgery
DX: K57.33 Diverticulitis of large intestine without perforation or abscess with bleeding (principal); D62 Acute posthemorrhagic anemia; K66.0 Peritoneal adhesions (postprocedural) (postinfection); E11.40 Type 2 diabetes mellitus with diabetic neuropathy, unspecified; E11.649 Type 2 diabetes mellitus with hypoglycemia without coma; I11.0 Hypertensive heart disease with heart failure; I50.9 Heart failure, unspecified; J44.9 Chronic obstructive pulmonary disease, unspecified; R33.9 Retention of urine, unspecified; I25.10 Atherosclerotic heart disease of native coronary artery without angina pectoris; E78.5 Hyperlipidemia, unspecified; K21.9 Gastro-esophageal reflux disease without esophagitis; F41.9 Anxiety disorder, unspecified; F31.9 Bipolar disorder, unspecified; K74.60 Unspecified cirrhosis of liver; E66.9 Obesity, unspecified; Z68.39 Body mass index [BMI] 39.0-39.9, adult; Z79.4 Long term (current) use of insulin; Z79.82 Long term (current) use of aspirin; Z85.3 Personal history of malignant neoplasm of breast; Z87.442 Personal history of urinary calculi
CPT/HCPCS: 74177; 78278; 80048; 80053; 80069; 82728; 82948; 83036; 83516 90; 85014; 85018; 85025; 85025 91; 85027; 85610; 85730; 86038; 86256 90; 86706; 86708 90; 86803; 86850; 86900; 86901; 86920; 87340; 88307; 94002; 94640; 94640 76; 99202; 99281; 99285; A9560; C1753; C9113; J0131; J0360; J1100; J1644; J1650; J1815; J2250; J2405; J2710; J3010; J7040; J7042; J7643; P9016; S0020; S0074

== ENCOUNTER 2018-03-13 10:59 | Emergency (ER) | payer OTHER ==
[~2018-03-13] VITALS: Ht 160 cm; Wt 88.7 kg
[2018-03-13 11:57] LABS: APPEARANCE CLEAR ((CLEAR)); BILIRUBIN NEGATIVE; BLOOD NEGATIVE; COLOR YELLOW ((YELLOW)); GLUCOSE (STRIP) NEGATIVE; KETONES NEGATIVE; LEUKOCYTES NEGATIVE; NITRITE NEGATIVE; PROTEIN (STRIP) 100; SPECIFIC GRAVITY 1.008 (1.000-1.030); UROBILINOGEN 0.2 MG/DL (0.2-1.0)
[2018-03-13 12:03] LABS: BACTERIA NONE SEEN /HPF; EPITHELIAL CELLS RARE /HPF; MUCUS NONE SEEN /LPF; RED BLOOD CELLS 0-5 /HPF (0-5); UCUL ADDED? NO; WHITE BLOOD CELLS 0-5 /HPF (0-5)
[2018-03-13 12:07] LABS: HEMATOCRIT 27.6 % (36.0-46.0); MCH 23.9 PG (29.0-34.0); MCHC 32.6 G/DL (30.0-36.0); PLATELET COUNT 198 K/uL (156-360); RBC DIS.WIDTH-CV 18.9 % (11.8-14.6); RBC DIS.WIDTH-SD 50.3 % (39-53); RED BLOOD COUNT 3.76 M/uL (3.80-5.20); WHITE BLOOD COUNT 4.9 K/uL (4.1-10.2)
[2018-03-13 12:08] LABS: ALBUMIN 3.1 g/dL (3.2-4.8); MCV 73.4 FL (83-99)
[2018-03-13 12:09] LABS: CHLORIDE 100 mEq/L (99-109); POTASSIUM 3.2 mEq/L (3.7-5.4); SODIUM 139 mEq/L (136-147)
[2018-03-13 12:11] LABS: GLUCOSE 128 mg/dL (70-99); TOTAL PROTEIN 6.7 g/dL (6.4-8.3)
[2018-03-13 12:13] LABS: TOTAL BILIRUBIN 0.3 mg/dL (0.0-1.0)
[2018-03-13 12:14] LABS: ALKALINE PHOSPHATASE 136 IU/L (3-129)
[2018-03-13 12:15] LABS: CREATININE 0.8 mg/dL (0.6-1.3); GFR ESTIMATE (CALCULATED) > 59 mL/min/
[2018-03-13 12:16] LABS: AST (GOT) 34 IU/L (2-34); UREA NITROGEN (BUN) 19 mg/dL (9-23)
[2018-03-13 12:18] LABS: ALT (GPT) 21 IU/L (3-49)
[2018-03-13 15:10] LABS: TROP-I INTERPRETATION NEGATIVE; TROPONIN-I 0.01 ng/mL (0.0-0.30)
[2018-03-13 15:25] LABS: LIPASE 13 U/L (1.0-51.0)
[2018-03-13] MEDS ORDERED: MIRALAX255 GM PO (15:54)
[2018-03-13] MEDS ORDERED: COLACE100 MG PO (15:54)
[2018-03-13 16:07] LABS: TROP-I INTERPRETATION NEGATIVE; TROPONIN-I 0.01 ng/mL (0.0-0.30)
[2018-03-13 18:30] VITALS: BP 161/84
== END 2018-03-13 17:50 | disposition home or self-care (01) ==
LOC: EME 10:59
PROVIDERS: Nurse Practitioner Family
DX: K59.00 Constipation, unspecified (principal); R10.32 Left lower quadrant pain; D64.9 Anemia, unspecified; Z98.890 Other specified postprocedural states; E11.9 Type 2 diabetes mellitus without complications; F32.9 Major depressive disorder, single episode, unspecified; I11.0 Hypertensive heart disease with heart failure; I50.9 Heart failure, unspecified; K21.9 Gastro-esophageal reflux disease without esophagitis; F41.9 Anxiety disorder, unspecified; Z85.3 Personal history of malignant neoplasm of breast; Z90.49 Acquired absence of other specified parts of digestive tract; Z88.5 Allergy status to narcotic agent; Z87.891 Personal history of nicotine dependence; Z87.442 Personal history of urinary calculi
CPT/HCPCS: 74177; 80053; 81003; 83690; 84484; 85027; 93005; 99281; 99285; J7120

== ENCOUNTER 2018-04-29 13:50 | Emergency (ER) | payer OTHER ==
[~2018-04-29] VITALS: Ht 165.1 cm; Wt 92.5 kg
[~2018-04-29 13:50] MED LIST changes: +COLACE100 MG PO; +MIRALAX255 GM PO
[2018-04-29 14:38] LABS: HEMATOCRIT 29.4 % (36.0-46.0); HEMOGLOBIN 9.4 G/DL (11.9-15.5); MCH 23.4 PG (29.0-34.0); MCV 73.3 FL (83-99); PLATELET COUNT 135 K/uL (156-360); RBC DIS.WIDTH-CV 21.5 % (11.8-14.6); RED BLOOD COUNT 4.01 M/uL (3.80-5.20); WHITE BLOOD COUNT 5.2 K/uL (4.1-10.2)
[2018-04-29 14:40] LABS: CHLORIDE 105 mEq/L (99-109); POTASSIUM 3.4 mEq/L (3.7-5.4); SODIUM 140 mEq/L (136-147)
[2018-04-29 14:41] LABS: GLUCOSE 104 mg/dL (70-99)
[2018-04-29 14:45] LABS: CREATININE 0.8 mg/dL (0.6-1.3); GFR ESTIMATE (CALCULATED) > 59 mL/min/
[2018-04-29 14:46] LABS: UREA NITROGEN (BUN) 19 mg/dL (9-23)
[2018-04-29] MEDS ORDERED: PERCOCET 5/31 TABLET PO (16:30)
[2018-04-29 17:47] VITALS: BP 188/64
== END 2018-04-29 17:47 | disposition home or self-care (01) ==
LOC: EME 13:50
PROVIDERS: Emergency Medicine
PROC: 2W3QX1Z Immobilization of Right Lower Leg using Splint (ICD-10-PCS; principal; 2018-04-29)
DX: S20.229A Contusion of unspecified back wall of thorax, initial encounter (principal); S09.90XA Unspecified injury of head, initial encounter; S92.334A Nondisplaced fracture of third metatarsal bone, right foot, initial encounter for closed fracture; S92.344A Nondisplaced fracture of fourth metatarsal bone, right foot, initial encounter for closed fracture; I11.0 Hypertensive heart disease with heart failure; I50.9 Heart failure, unspecified; W01.0XXA Fall on same level from slipping, tripping and stumbling without subsequent striking against object, initial encounter; M54.2 Cervicalgia; E11.9 Type 2 diabetes mellitus without complications; F32.9 Major depressive disorder, single episode, unspecified; F41.9 Anxiety disorder, unspecified; K21.9 Gastro-esophageal reflux disease without esophagitis; Z85.3 Personal history of malignant neoplasm of breast; Z90.11 Acquired absence of right breast and nipple; Z88.5 Allergy status to narcotic agent; Z87.891 Personal history of nicotine dependence; Z87.442 Personal history of urinary calculi
CPT/HCPCS: 70450; 72070; 72125; 73630; 80048; 85027; 93005; 99281; 99284

== ENCOUNTER 2018-05-07 17:17 | Inpatient (IN) | payer OTHER ==
[~2018-05-07] VITALS: Ht 177.8 cm; Wt 91.7 kg
[~2018-05-07 17:17] MED LIST changes: +PERCOCET 5/31 TABLET PO
[2018-05-07 18:56] LABS: ALBUMIN 2.9 g/dL (3.2-4.8); CHLORIDE 105 mEq/L (99-109); POTASSIUM 3.8 mEq/L (3.7-5.4); SODIUM 140 mEq/L (136-147)
[2018-05-07 18:59] LABS: GLUCOSE 123 mg/dL (70-99)
[2018-05-07 19:01] LABS: TOTAL BILIRUBIN 0.4 mg/dL (0.0-1.0)
[2018-05-07 19:02] LABS: ALKALINE PHOSPHATASE 163 IU/L (3-129); CREATININE 0.8 mg/dL (0.6-1.3); GFR ESTIMATE (CALCULATED) > 59 mL/min/
[2018-05-07 19:03] LABS: UREA NITROGEN (BUN) 18 mg/dL (9-23)
[2018-05-07 19:04] LABS: AST (GOT) 47 IU/L (2-34); TROP-I INTERPRETATION NEGATIVE; TROPONIN-I < 0.01 ng/mL (0.0-0.30)
[2018-05-07 19:05] LABS: ALT (GPT) 24 IU/L (3-49)
[2018-05-07 19:24] LABS: HEMATOCRIT 30.8 % (36.0-46.0); HEMOGLOBIN 9.8 G/DL (11.9-15.5); MCH 23.4 PG (29.0-34.0); MCHC 31.8 G/DL (30.0-36.0); MCV 73.7 FL (83-99); PLATELET COUNT 146 K/uL (156-360); RBC DIS.WIDTH-CV 21.8 % (11.8-14.6); RBC DIS.WIDTH-SD 57.8 % (39-53); RED BLOOD COUNT 4.18 M/uL (3.80-5.20); WHITE BLOOD COUNT 5.2 K/uL (4.1-10.2)
[2018-05-07 19:48] LABS: LIPASE 94 U/L (1.0-51.0)
[2018-05-07 20:14] LABS: DIRECT BILIRUBIN 0.2 mg/dL (0.0-0.3)
[2018-05-07] MEDS ORDERED: HYDROCHLOROTHIA25 MG PO (21:11)
[2018-05-07] MEDS ORDERED: COLACE100 MG PO (21:11)
[2018-05-07] MEDS ORDERED: NOVOLOG PE100 UNITS/ SC (21:12)
[2018-05-07] MEDS ORDERED: FUROSEMIDE20 MG PO (21:14)
[2018-05-07] MEDS ORDERED: LO-DOSE ASPIRIN81 M2 PO (21:14)
[2018-05-07] MEDS ORDERED: KENALOG,ARISTOC80 GM TP (21:15)
[2018-05-07] MEDS ORDERED: ANTIVERT25 MG PO (21:15)
[2018-05-07] MEDS ORDERED: LISINOPRIL20 MG PO (21:15)
[2018-05-07] MEDS ORDERED: POTASSIUM-9999 MG PO (21:16)
[2018-05-08] VITALS (7 sets, daily range): BP systolic 142–204; BP diastolic 62–85
[2018-05-08 00:02] LABS: C-REACTIVE PROTEIN 8.2 MG/L (0-10); TRIGLYCERIDES 111 MG/DL (Normal: <150)
[2018-05-08 02:42] LABS: APPEARANCE CLEAR ((CLEAR)); BILIRUBIN NEGATIVE; BLOOD SMALL; COLOR COLORLESS ((YELLOW)); GLUCOSE (STRIP) NEGATIVE; KETONES NEGATIVE; LEUKOCYTES NEGATIVE; NITRITE NEGATIVE; PROTEIN (STRIP) 100; SPECIFIC GRAVITY 1.011 (1.000-1.030); UROBILINOGEN 0.2 MG/DL (0.2-1.0)
[2018-05-08 02:56] LABS: BACTERIA NONE SEEN /HPF; EPITHELIAL CELLS RARE /HPF; MUCUS NONE SEEN /LPF; WHITE BLOOD CELLS 0-5 /HPF (0-5)
[2018-05-08 07:22] LABS: BASOPHIL (%) 0.5 % (0-1); EOSINOPHIL (%) 4.4 % (0-5); EOSINOPHIL COUNT 0.2 K/uL (0-0.3); HEMATOCRIT 27.5 % (36.0-46.0); HEMOGLOBIN 8.6 G/DL (11.9-15.5); IMMATURE GRANULOCYTE (%) 0.2 % (0.0-0.7); LYMPHOCYTE (%) 36.8 % (15-42); LYMPHOCYTE COUNT 1.6 K/uL (1.0-2.8); MCH 23.2 PG (29.0-34.0); MCHC 31.3 G/DL (30.0-36.0); MCV 74.1 FL (83-99); MONOCYTE (%) 11.2 % (3-12); MONOCYTE COUNT 0.5 K/uL (0-0.8); NEUTROPHIL (%) 46.9 % (45-76); PLATELET COUNT 133 K/uL (156-360); RBC DIS.WIDTH-CV 21.8 % (11.8-14.6); RBC DIS.WIDTH-SD 58.5 % (39-53); RED BLOOD COUNT 3.71 M/uL (3.80-5.20); WHITE BLOOD COUNT 4.3 K/uL (4.1-10.2)
[2018-05-08 07:27] LABS: ALBUMIN 2.5 G/DL (3.2-4.8); ALKALINE PHOSPHATASE 109 IU/L (3-129); ALT (GPT) 17 IU/L (3-49); AST (GOT) 31 IU/L (2-34); CHLORIDE 106 MEQ/L (99-109); CREATININE 0.8 MG/DL (0.6-1.3); GFR ESTIMATE (CALCULATED) > 59 mL/min/; POTASSIUM 3.4 MEQ/L (3.7-5.4); SODIUM 143 MEQ/L (136-147); TOTAL BILIRUBIN 0.4 MG/DL (0.0-1.0); TOTAL PROTEIN 5.2 G/DL (6.4-8.3); UREA NITROGEN (BUN) 15 mg/dL (9-23)
[2018-05-08 07:34] LABS: GLUCOSE 75 mg/dL (70-99)
[2018-05-08 08:05] LABS: LIPASE 10 U/L (1.0-51.0)
[2018-05-08 20:17] LABS: HEMATOCRIT 29.2 % (36.0-46.0); HEMOGLOBIN 9.2 G/DL (11.9-15.5); MCV 74.3 FL (83-99)
[2018-05-09 04:20] VITALS: BP 142/74
[2018-05-09 08:07] VITALS: BP 158/70
[2018-05-09 09:01] LABS: STOOL OCCULT BLD 1ST SPECIMEN NEGATIVE
[2018-05-09 12:10] VITALS: BP 158/70
[2018-05-09 15:14] VITALS: BP 182/87
[2018-05-09 19:41] VITALS: BP 174/84
[2018-05-09 23:52] VITALS: BP 172/85
[2018-05-10 03:41] VITALS: BP 162/84
[2018-05-10 06:26] LABS: CHLORIDE 106 MEQ/L (99-109); GFR ESTIMATE (CALCULATED) > 59 mL/min/; POTASSIUM 3.9 MEQ/L (3.7-5.4); SODIUM 140 MEQ/L (136-147); UREA NITROGEN (BUN) 15 mg/dL (9-23)
[2018-05-10 06:27] LABS: GLUCOSE 148 mg/dL (70-99)
[2018-05-10 08:02] VITALS: BP 184/80
[2018-05-10 09:12] VITALS: BP 182/74
[2018-05-10 09:49] VITALS: BP 172/64
[2018-05-10] MEDS ORDERED: APRESOLINE10 MG PO (10:32)
[2018-05-10 12:01] VITALS: BP 177/64
[2018-05-10 13:42] VITALS: BP 132/73
== END 2018-05-10 15:16 | disposition home health service (06) | DRG 439 ==
LOC: EME 17:17 → 2EAST 22:30 → EDOF 22:30 → 2EAST 05-08 01:11 → EDOF 05-08 01:15 → 2EAST 05-08 01:23
PROVIDERS: Hospitalist; Internal Medicine; Nurse Practitioner Family
DX: K85.90 Acute pancreatitis without necrosis or infection, unspecified (principal); I11.0 Hypertensive heart disease with heart failure; I50.32 Chronic diastolic (congestive) heart failure; D69.6 Thrombocytopenia, unspecified; E11.65 Type 2 diabetes mellitus with hyperglycemia; E11.40 Type 2 diabetes mellitus with diabetic neuropathy, unspecified; D50.0 Iron deficiency anemia secondary to blood loss (chronic); E66.9 Obesity, unspecified; Z68.29 Body mass index [BMI] 29.0-29.9, adult; E87.6 Hypokalemia; E88.09 Other disorders of plasma-protein metabolism, not elsewhere classified; K21.9 Gastro-esophageal reflux disease without esophagitis; G89.29 Other chronic pain; F32.9 Major depressive disorder, single episode, unspecified; F41.9 Anxiety disorder, unspecified; Z87.19 Personal history of other diseases of the digestive system; Z85.3 Personal history of malignant neoplasm of breast; Z87.891 Personal history of nicotine dependence; Z90.49 Acquired absence of other specified parts of digestive tract; Z90.710 Acquired absence of both cervix and uterus; Z79.4 Long term (current) use of insulin; Z92.3 Personal history of irradiation
CPT/HCPCS: 71046; 71275; 74174; 80048; 80053; 81003; 82248; 82272; 82948; 83690; 83880; 84478; 84484; 85014; 85018; 85025; 85027; 86140; 93005; 93970; 99281; 99285; C9113; J1644; J1815; J1940; J2270; J2405; J3010; J7030; J7120